=== PATIENT | male | born 1975 | race African-American/Black ===

== ENCOUNTER 2018-07-08 22:01 | Emergency (ER) | payer OTHER ==
[2018-07-08] MEDS ORDERED: SIMETHICONE 80 MG TAB ONE (23:42)
[2018-07-09 00:09] LABS: Absolute Lymphocytes (CBC) 0.6 K/uL (0.7-4.9); Absolute Monocytes 0.4 K/uL (0.1-1.3); Basophils % 0.5 % (0-1.3); Eosinophils % 0.3 % (0-4.4); Hematocrit 41.2 % (39.6-49.0); Lymphocytes % 7.8 % (15.3-44.8); MPV 7.6 fL (7.6-11.3); RBC Red Blood Cell Count 5.33 M/uL (4.33-5.43)
[2018-07-09 00:21] LABS: Albumin 3.8 g/dL (3.4-5.0); Bilirubin Direct 0.2 mg/dL (0-0.2); Bilirubin Total 0.8 mg/dL (0.2-1.0); Potassium 4.3 mmol/L (3.5-5.1); Protein, Total 7.5 g/dL (6.4-8.2)
[2018-07-09 00:47] LABS: Blood Morphology Comment NOTED (NOT SEEN); Burr Cells 2+; Platelet Estimate ADEQ; Polychromasia 1+
--- NOTE | 2018-07-09 01:13 | ER ---
Nurse's Notes [facility] Name: Donovan Ruiz Age: 42 yrs Sex: Male : 1975 Arrival Date: 07/08/2018 Time: 22:02 Bed 14 Private MD: Daryn Red Diagnosis: Abdominal and pelvic pain;Nephrolithiasis Presentation: 07/08 22:28 Presenting complaint: Patient states: i was diagnose today with gallstone and rr5 constipation. Prescribed with tylenol #3. now I'm having severe abdominal pain, pain score of 10/10. Transition of care: patient was not received from another setting of care. Onset of symptoms was July 08, 2018. Risk Assessment: Do you want to hurt yourself or someone else? Patient reports no desire to harm self or others. Initial Sepsis Screen: Does the patient meet any 2 criteria? No. Patient's initial sepsis screen is negative. Does the patient have a suspected source of infection? No. Patient's initial sepsis screen is negative. Care prior to arrival: Medication(s) given: T3. 22:28 Method Of Arrival: Ambulatory rr5 22:28 Acuity: DASH 3 rr5 Historical: - Allergies: 22:34 Iodine; rr5 - Home Meds: 22:34 Lisinopril Oral [Active]; Metformin Oral [Active]; Levemir subcutaneous subcutaneous rr5 [Active]; carvedilol oral oral [Active]; - PMHx: 22:34 Diabetes - IDDM; Hypertension; Sleep Apnea; rr5 - PSHx: 22:34 None; rr5 - Immunization history:: Adult Immunizations up to date. - Social history:: Smoking status: Patient/guardian denies using tobacco, Patient/guardian denies using alcohol, street drugs. - Ebola Screening: : Patient negative for fever greater than or equal to 101.5 degrees Fahrenheit, and additional compatible Ebola Virus Disease symptoms Patient denies exposure to infectious person Patient denies travel to an Ebola-affected area in the 21 days before illness onset. Screenin:35 Abuse screen: Denies threats or abuse. Denies injuries from another. Nutritional rr5 screening: No deficits noted. Tuberculosis screening: No symptoms or risk factors identified. 07/09 00:00 Fall Risk IV access (20 points). Total Nick Fall Scale indicates No Risk (0-24 pts). rr5 Assessment: 07/08 22:20 General: Appears in no apparent distress. uncomfortable, Behavior is calm, cooperative, rr5 appropriate for age. Pain: Complains of pain in right flank Pain does not radiate. Pain currently is 10 out of 10 on a pain scale. Quality of pain is described as aching, Pain began gradually, Is intermittent. 22:20 Neuro: Level of Consciousness is awake, alert, obeys commands, Oriented to person, rr5 place, time, situation, Appropriate for age. Cardiovascular: Capillary refill < 3 seconds Patient's skin is warm and dry. Respiratory: Airway is patent Respiratory effort is even, unlabored, Respiratory pattern is regular, symmetrical. GI: Abdomen is round obese. : Reports pain in right flank(s). EENT: No signs and/or symptoms were reported regarding the EENT system. Derm: Skin is intact, Skin temperature is warm. Musculoskeletal: Capillary refill < 3 seconds, Range of motion: intact in all extremities. 23:30 Reassessment: Patient appears in no apparent distress at this time. No changes from rr5 previously documented assessment. Patient is alert, oriented x 3, equal unlabored respirations, skin warm/dry/pink. 07/09 00:05 Reassessment: Patient appears in no apparent distress at this time. Patient is alert, rr5 oriented x 3, equal unlabored respirations, skin warm/dry/pink. awaiting for result. no complaints made. 00:55 Reassessment: Patient appears in no apparent distress at this time. Patient is alert, rr5 oriented x 3, equal unlabored respirations, skin warm/dry/pink. review done by ED provider with order made and carried out. 01:55 Reassessment: Patient appears in no apparent distress at this time. Patient is alert, rr5 oriented x 3, equal unlabored respirations, skin warm/dry/pink. discharge instruction given and explained without complaints made. Patient denies pain at this time. Patient states feeling better. Patient states symptoms have improved. Vital Signs: 07/08 22:30 BP 137 / 90; Pulse 77; Resp 17; Temp 98.4; Pulse Ox 99% ; Weight 135.62 kg; Height 5 rr5 ft. 9 in. (175.26 cm); Pain 10/10; 23:30 BP 141 / 70; Pulse 85; Resp 19; Pulse Ox 99% on R/A; Pain 10/10; rr5 07/09 00:00 BP 131 / 65; Pulse 79; Resp 17; Pulse Ox 99% ; Pain 7/10; rr5 01:00 BP 126 / 63; Pulse 74; Resp 18; Pulse Ox 98% on R/A; rr5 01:56 BP 124 / 73; Pulse 75; Resp 17; Pulse Ox 99% ; Pain 0/10; rr5 07/08 22:30 Body Mass Index 44.15 (135.62 kg, 175.26 cm) rr5 ED Course: 07/08 22:02 Patient arrived in ED. do 22:02 Daryn Red MD is Private Physician. do 22:12 Segundo Mae [facility]. jr8 22:12 Martín Alfred MD is Attending Physician. jr8 22:28 Bam Russell, MARILY is Primary Nurse. rr5 22:31 Triage completed. rr5 22:35 Arm band placed on. rr5 22:35 Patient has correct armband on for positive identification. Placed in gown. Bed in low rr5 position. Call light in reach. Side rails up X2. 23:[address] via wheelchair. nj 23:32 CT completed. Patient tolerated procedure well. nj 23:40 Inserted saline lock: 20 gauge in right forearm, using aseptic technique. Blood rr5 collected. 23:45 Stone Protocol In Process Unspecified. EDMS 07/09 01:11 Garret Solorio MD is Referral Physician. jr8 02:02 No provider procedures requiring assistance completed. IV discontinued, intact, rr5 bleeding controlled, No redness/swelling at site. Pressure dressing applied. Administered Medications: 07/08 23:40 Drug: Simethicone 160 mg Route: PO; rr5 07/09 02:02 Follow up: Response: No adverse reaction rr5 01:08 Drug: Zofran 4 mg Route: IVP; Site: right forearm; rr5 02:02 Follow up: Response: No adverse reaction rr5 01:10 Drug: morphine 4 mg Route: IVP; Site: right forearm; rr5 02:02 Follow up: Response: No adverse reaction rr5 01:13 Drug: Rocephin 1 grams Route: IV; Rate: calculated rate; Site: right forearm; rr5 02:01 Follow up: Response: No adverse reaction; IV Status: Completed infusion; IV Intake: [id number] Intake: 02:01 IV: 10ml; Total: 10ml. rr5 Outcome: 01:13 Discharge ordered by . grupo 02:00 Discharged to home ambulatory, with family. rr5 02:00 Condition: stable 02:00 Discharge instructions given to patient, family, Instructed on discharge instructions, follow up and referral plans. medication usage, Demonstrated understanding of instructions, follow-up care, medications, Prescriptions given X 2. 02:04 Patient left the ED. rr5 Signatures: Dispatcher [employer] EDMS Segundo Mae PA PA jr8 Mari Cordero, Bam Quiñones, RN RN rr5
--- NOTE | 2018-07-09 01:13 | EDPHYS ---
Physician Documentation [facility] Name: Donovan Ruiz Age: 42 yrs Sex: Male : 1975 Arrival Date: 07/08/2018 Time: 22:02 Bed 14 Private MD: Daryn Red ED Physician Martín Alfred HPI: 07/08 22:31 This 42 yrs old Black Male presents to ER via Unassigned with complaints of Side of jr8 Abdomen Pain. 22:31 Onset: The symptoms/episode began/occurred last night. Associated signs and symptoms: jr8 Pertinent positives: abdominal pain, Pertinent negatives: chest pain, diarrhea, fever, shortness of breath, vomiting. 22:48 Modifying factors: The patient symptoms are alleviated by nothing, the patient symptoms jr8 are aggravated by nothing. The patient has not experienced similar symptoms in the past. The patient has been recently seen by a physician: earlier today, seen at [facility]. Patient reports right flank and right abd pain that radiates to his groin that started last night. States that he was seen at [facility] today and discharged home with gallstones and constipation. Patient reports that the abdominal pain returned so he came back to this ER to be evaluated.. Historical: - Allergies: 22:34 Iodine; rr5 - Home Meds: 22:34 Lisinopril Oral [Active]; Metformin Oral [Active]; Levemir subcutaneous subcutaneous rr5 [Active]; carvedilol oral oral [Active]; - PMHx: 22:34 Diabetes - IDDM; Hypertension; Sleep Apnea; rr5 - PSHx: 22:34 None; rr5 - Immunization history:: Adult Immunizations up to date. - Social history:: Smoking status: Patient/guardian denies using tobacco, Patient/guardian denies using alcohol, street drugs. - Ebola Screening: : Patient negative for fever greater than or equal to 101.5 degrees Fahrenheit, and additional compatible Ebola Virus Disease symptoms Patient denies exposure to infectious person Patient denies travel to an Ebola-affected area in the 21 days before illness onset. ROS: 22:48 Constitutional: Negative for fever, chills, and weight loss, Cardiovascular: Negative jr8 for chest pain, palpitations, and edema, Respiratory: Negative for shortness of breath, cough, wheezing, and pleuritic chest pain, : Negative for injury, bleeding, discharge, and swelling, MS/Extremity: Negative for injury and deformity, Skin: Negative for injury, rash, and discoloration. 22:48 Abdomen/GI: Positive for abdominal pain, constipation, Negative for nausea and vomiting, diarrhea. 22:48 : Positive for burning with urination. Exam: 22:51 Constitutional: This is a well developed, well nourished patient who is awake, alert, jr8 and in no acute distress. Eyes: Pupils equal round and reactive to light, extra-ocular motions intact. Lids and lashes normal. Conjunctiva and sclera are non-icteric and not injected. Cornea within normal limits. Periorbital areas with no swelling, redness, or edema. ENT: Nares patent. No nasal discharge, no septal abnormalities noted. Tympanic membranes are normal and external auditory canals are clear. Oropharynx with no redness, swelling, or masses, exudates, or evidence of obstruction, uvula midline. Mucous membranes moist. Cardiovascular: Regular rate and rhythm with a normal S1 and S2. No gallops, murmurs, or rubs. Normal PMI, no JVD. No pulse deficits. Respiratory: Lungs have equal breath sounds bilaterally, clear to auscultation and percussion. No rales, rhonchi or wheezes noted. No increased work of breathing, no retractions or nasal flaring. Skin: Warm, dry with normal turgor. Normal color with no rashes, no lesions, and no evidence of cellulitis. MS/ Extremity: Pulses equal, no cyanosis. Neurovascular intact. Full, normal range of motion. Neuro: Awake and alert, GCS 15, oriented to person, place, time, and situation. Cranial nerves II-XII grossly intact. Motor strength 5/5 in all extremities. Sensory grossly intact. Cerebellar exam normal. Normal gait. 22:51 Abdomen/GI: Inspection: distension, that is moderate, in the abdomen diffusely, obese Bowel sounds: normal, in all quadrants, Palpation: mild abdominal tenderness, in the right upper quadrant and right lower quadrant, Liver: is enlarged. Vital Signs: 22:30 BP 137 / 90; Pulse 77; Resp 17; Temp 98.4; Pulse Ox 99% ; Weight 135.62 kg; Height 5 rr5 ft. 9 in. (175.26 cm); Pain 10/10; 23:30 BP 141 / 70; Pulse 85; Resp 19; Pulse Ox 99% on R/A; Pain 10/10; rr5 07/09 00:00 BP 131 / 65; Pulse 79; Resp 17; Pulse Ox 99% ; Pain 7/10; rr5 01:00 BP 126 / 63; Pulse 74; Resp 18; Pulse Ox 98% on R/A; rr5 01:56 BP 124 / 73; Pulse 75; Resp 17; Pulse Ox 99% ; Pain 0/10; rr5 07/08 22:30 Body Mass Index 44.15 (135.62 kg, 175.26 cm) rr5 MDM: 07/08 22:12 Patient medically screened. jr8 22:52 Data reviewed: vital signs, nurses notes, reviewed [place] discharge papers; CT abdomen jr8 w/out contrast and blood work+UA completed. Discharge diagnosis was constipation. . 07/09 00:53 Differential diagnosis: neprolithiasis. Data reviewed: lab test result(s), CBC, jr8 electrolytes, urinalysis, radiologic studies, CT scan. Counseling: I had a detailed discussion with the patient and/or guardian regarding: the historical points, exam findings, and any diagnostic results supporting the discharge/admit diagnosis, lab results, radiology results, the need for outpatient follow up, for definitive care, a urologist, to return to the emergency department if symptoms worsen or persist or if there are any questions or concerns that arise at home. 01:10 Medication response: morphine markedly relieved the patient's pain. Symptoms have jr8 improved. 07/08 22:50 Order name: Urine Dipstick--Ancillary (enter results) 07/08 23:20 Order name: Stone Protocol [facility] 07/09 00:00 Order name: Basic Metabolic Panel; Complete Time: 00:34 EDLA 07/09 00:00 Order name: Liver (Hepatic) Function; Complete Time: 00:34 EDLA 07/09 00:01 Order name: Lipase; Complete Time: 00:34 [facility] 07/09 00:01 Order name: Creatinine (Radiology Only); Complete Time: 00:34 EDLA 07/09 00:01 Order name: CBC with Automated Diff; Complete Time: 00:57 EDLA 07/09 00:20 Order name: Manual Differential; Complete Time: 00:57 [facility] 07/08 23:08 Order name: IV Saline Lock; Complete Time: 23:58 jr8 07/08 23:08 Order name: Labs collected and sent; Complete Time: 23:58 jr8 Administered Medications: 07/08 23:40 Drug: Simethicone 160 mg Route: PO; rr5 07/09 02:02 Follow up: Response: No adverse reaction rr5 01:08 Drug: Zofran 4 mg Route: IVP; Site: right forearm; rr5 02:02 Follow up: Response: No adverse reaction rr5 01:10 Drug: morphine 4 mg Route: IVP; Site: right forearm; rr5 02:02 Follow up: Response: No adverse reaction rr5 01:13 Drug: Rocephin 1 grams Route: IV; Rate: calculated rate; Site: right forearm; rr5 02:01 Follow up: Response: No adverse reaction; IV Status: Completed infusion; IV Intake: [id number] Disposition: 03:07 Co-signature as Attending Physician, Martín Alfred MD. rn Disposition: 07/09/18 01:13 Discharged to Home. Impression: Abdominal and pelvic pain, Nephrolithiasis. - Condition is Stable. - Discharge Instructions: Abdominal Pain, Adult, Kidney Stones, [id number]. - Prescriptions for Keflex 500 mg Oral Capsule - take 1 capsule by ORAL route every 8 hours for 7 days; 21 capsule. Flomax 0.4 mg Oral Capsule, Sust. Release 24 hr - take 1 capsule by ORAL route once daily 1/2 hour following the same meal each day; 14 capsule. - Medication Reconciliation Form, Thank You Letter, Antibiotic Education, Prescription Opioid Use form. - Follow up: Garret Solorio MD; When: 2 - 3 days; Reason: Worsening of condition, Recheck today's complaints. - Problem is new. - Symptoms have improved. Signatures: Dispatcher [employer] [facility] Martín Alfred MD MD rn Roszak, Josh, PA PA jr8 Bam Russell RN RN rr5 Corrections: (The following items were deleted from the chart) 07/08 22:50 22:31 Associated signs and symptoms: Pertinent positives: abdominal pain, Pertinent jr8 negatives: jr8 07/09 00:59 00:54 Stone Protocol+CT.RAD.BRZ ordered. [facility] EDMS 02:04 01:13 07/09/2018 01:13 Discharged to Home. Impression: Abdominal and pelvic pain; rr5 Nephrolithiasis. Condition is Stable. Forms are Medication Reconciliation Form, Thank You Letter, Antibiotic Education, Prescription Opioid Use. Follow up: Garret Solorio; When: 2 - 3 days; Reason: Worsening of condition, Recheck today's complaints. Problem is new. Symptoms have improved. jr8
[2018-07-09] MEDS ORDERED: MORPHINE 4 MG/ML SYR ONE (01:23)
[2018-07-09] MEDS ORDERED: CEFTRIAXONE/SWI 1gm 1 GM/10 ML SYR ONE (01:23)
[2018-07-09] MEDS ORDERED: ONDANSETRON 4 MG/2 ML VIAL ONE (01:23)
[2018-07-09 05:20] LABS: Urine Blood 3+ (NEG); Urine Glucose NEGATIVE (NEG); Urine Protein TRACE (NEG); Urine Specific Gravity >1.030 (1.005-1.030)
--- NOTE | 2018-07-09 11:07 | RAD REPORT ---
EXAM DESCRIPTION: CT Abdomen and Pelvis Without Intravenous Contrast CLINICAL HISTORY: The patient is 42 years old and is Male; abd pain TECHNIQUE: Axial computed tomography images of the abdomen and pelvis without intravenous contrast. Sagittal and coronal reformatted images were created and reviewed. This CT exam was performed usi ng one or more of the following dose reduction techniques: automated exposure control, adjustment o f the mA and/or kV according to patient size, and/or use of iterative reconstruction technique. COMPARISON: No relevant prior studies available. FINDINGS: LUNG BASES: Unremarkable. No mass. No consolidation. ABDOMEN: LIVER: There is a diffuse decrease in hepatic parenchymal density, consistent with fatty infiltr ation. The liver is enlarged. GALLBLADDER AND BILE DUCTS: No calcified stones. No ductal dilation. PANCREAS: Mild fatty infiltration of the pancreas is noted. No ductal dilation. SPLEEN: Splenule is present within the left upper quadrant. The spleen is unremarkable. ADRENALS: Unremarkable. No mass. KIDNEYS AND URETERS: Mild right hydroureteronephrosis with associated perinephric and periureter al stranding is present secondary to a 4 mm calculus just beyond the right UVJ within the base of the bladder. The left kidney is unremarkable. STOMACH AND BOWEL: The stomach is moderately distended. The small bowel is normal in caliber. St ool is present throughout the colon. There is no mucosal thickening or evidence of bowel obstruction. PELVIS: APPENDIX: The appendix is normal in caliber without surrounding inflammation. BLADDER: The bladder is not well distended. REPRODUCTIVE: Unremarkable as visualized. ABDOMEN and PELVIS: INTRAPERITONEAL SPACE: Unremarkable. No free air. No significant fluid collection. BONES/JOINTS: No acute fracture. SOFT TISSUES: Focal skin thickening along the left anterior abdominal wall is present. VASCULATURE: Unremarkable. No abdominal aortic aneurysm. LYMPH NODES: Unremarkable. No enlarged lymph nodes. IMPRESSION: 1. Mild right hydroureteronephrosis with associated perinephric and periureteral stran ding is present secondary to a 4 mm calculus just beyond the right UVJ within the base of the bladder . 2. Focal skin thickening along the left lateral anterior abdominal wall which may be secondary to a n area of cellulitis. No underlying abscess is noted. Electronically signed by: Eliza Rhodes MD 07/08/2018 11:51 PM CDT Due to temporary technical issues with the PACS/Fluency reporting system, reports are being signed by the in house radiologist as a courtesy to ensure prompt reporting. The interpreting radiologist is f ully responsible for the content of the report.
== END 2018-07-09 02:04 | disposition home or self-care (01) ==
LOC: ER 22:01
DX: N20.0 Calculus of kidney (principal); R10.9 Unspecified abdominal pain; E11.9 Type 2 diabetes mellitus without complications; I10 Essential (primary) hypertension; Z79.4 Long term (current) use of insulin; Z88.8 Allergy status to other drugs, medicaments and biological substances
CPT/HCPCS: 36415; 74176; 76377; 80048; 80076; 81003; 83690; 85025; 96365; 96375; 99284; J0696; J2405

== ENCOUNTER 2018-07-18 06:25 | Emergency (ER) | payer OTHER ==
[2018-07-18] MEDS ORDERED: ALBUTEROL 2.5 MG/3 ML NEB SOL ONE (07:04)
[2018-07-18 07:09] LABS: Absolute Lymphocytes (CBC) 0.8 K/uL (0.7-4.9); Absolute Monocytes 0.2 K/uL (0.1-1.3); Absolute Neutrophil 2.8 K/uL (1.8-8.0); Basophils % 0.8 % (0-1.3); Hematocrit 38.2 % (39.6-49.0); Lymphocytes % 21.2 % (15.3-44.8); MPV 7.5 fL (7.6-11.3); RBC Red Blood Cell Count 4.95 M/uL (4.33-5.43)
[2018-07-18 07:27] LABS: Potassium 4.2 mmol/L (3.5-5.1); Troponin (Emerg Dept Use Only) 0.03 ng/mL (0.0-0.045)
--- NOTE | 2018-07-18 07:59 | EKG ---
Test Date: 2018-07-18 Test Time: 07:02:41 Residence Counselor: [id number] MEASUREMENT RESULTS: Intervals: Rate: 73 SD: 142 QRSD: 86 QT: 378 QTc: 416 [place]: P: 45 SD: 142 QRS: 110 T: -48 INTERPRETIVE STATEMENTS: Normal sinus rhythm Septal infarct, age undetermined Lateral infarct, age undetermined T wave abnormality, consider inferior ischemia Abnormal ECG No previous ECG available for comparison Electronically Signed On 07-18-18 07:58:41 CDT by Cooper Olivera
[2018-07-18] MEDS ORDERED: FUROSEMIDE 20 MG/ 2ML VIAL ONE (08:11)
[2018-07-18] MEDS ORDERED: INSULIN -REGULAR HUMAN 50 UNIT/0.5 ML ML ONE (08:12)
--- NOTE | 2018-07-18 08:26 | RAD REPORT ---
EXAM DESCRIPTION: Heather Cooper And Nesha (2 Views)07/18/2018 7:39 am CLINICAL HISTORY: Cough COMPARISON: None FINDINGS: Peribronchial thickening is present centrally. A lung consolidation is not seen. The heart is normal size IMPRESSION: Peribronchial thickening may indicate a bronchitis
--- NOTE | 2018-07-18 09:05 | EDPHYS ---
Physician Documentation [facility] Name: Donovan Ruiz Age: 42 yrs Sex: Male : 1975 Arrival Date: 07/18/2018 Time: 06:29 Bed 5 Private MD: Darny Red ED Physician Philippe Dixon HPI: 07/18 06:50 This 42 yrs old Black Male presents to ER via Ambulatory with complaints of Breathing rn Difficulty, Chest Congestion. 06:50 The patient has shortness of breath at rest. Onset: The symptoms/episode began/occurred rn 2 day(s) ago. Duration: The symptoms are intermittent. The patient's shortness of breath is aggravated by coughing, exertion, is alleviated by nothing. Severity of symptoms: At their worst the symptoms were mild in the emergency department the symptoms are unchanged. The patient has not experienced similar symptoms in the past. The patient has not recently seen a physician. Reports sob, cough, intermittent, began a few days ago. Has been told in past that has "weak heart muscles", and uses an inhaler for unknown reason. . Historical: - Allergies: 06:43 Iodine; bb - Home Meds: 06:43 ProAir HFA inhalation inhalation [Active]; metformin 1,000 mg oral tab 1 tab 2 times bb per day [Active]; glimepiride 4 mg Oral tab 1 tab once daily [Active]; 08:31 benzonatate 100 mg oral cap 1 cap twice a day [Active]; lisinopril 10 mg oral tab once sv daily [Active]; Levemir 60 units BID subcutaneous [Active]; - PMHx: 06:43 Diabetes - IDDM; Hypertension; Sleep Apnea; bb - Immunization history:: Adult Immunizations up to date, Flu vaccine is not up to date. - Social history:: Smoking status: Patient/guardian denies using tobacco. - Ebola Screening: : No symptoms or risks identified at this time. - Family history:: not pertinent. - Hospitalizations: : No recent hospitalization is reported. ROS: 06:50 Constitutional: Negative for fever, chills, and weight loss, Eyes: Negative for injury, rn pain, redness, and discharge, Neck: Negative for injury, pain, and swelling, Cardiovascular: Negative for chest pain, palpitations, and edema, Respiratory: Negative for wheezing, and pleuritic chest pain, Abdomen/GI: Negative for abdominal pain, nausea, vomiting, diarrhea, and constipation, MS/Extremity: Negative for injury and deformity, Skin: Negative for injury, rash, and discoloration, Neuro: Negative for headache, weakness, numbness, tingling, and seizure. Exam: 06:50 Constitutional: This is a well developed, well nourished patient who is awake, alert, rn and in no acute distress. Head/Face: Normocephalic, atraumatic. Eyes: Pupils equal round and reactive to light, extra-ocular motions intact. Lids and lashes normal. Conjunctiva and sclera are non-icteric and not injected. Cornea within normal limits. Periorbital areas with no swelling, redness, or edema. ENT: no oral swelling, no stridor Cardiovascular: Regular rate and rhythm. No pulse deficits. Respiratory: Lungs have equal breath sounds bilaterally, clear to auscultation. No increased work of breathing, no retractions or nasal flaring. Abdomen/GI: soft, non-tender MS/ Extremity: Pulses equal, no cyanosis. Neurovascular intact. Full, normal range of motion. Equal circumference. NOn-pitting edema bilateral lower ext Neuro: Awake and alert, GCS 15, oriented to person, place, time, and situation. Cranial nerves II-XII grossly intact. Motor strength 5/5 in all extremities. Sensory grossly intact. 09:03 Musculoskeletal/extremity: Extremities: grossly normal except: swelling, 2 plus pitting pritesh edema. Vital Signs: 06:43 BP 138 / 101; Pulse 90; Resp 20 S; Temp 98.7(O); Pulse Ox 96% on R/A; Weight 139.25 kg bb (R); Height 5 ft. 9 in. (175.26 cm) (R); Pain 0/10; 07:24 BP 146 / 118; Pulse 70; Resp 20; Pulse Ox 97% on R/A; sv 08:31 BP 145 / 86; Pulse 69; Resp 20; Pulse Ox 96% on R/A; sv 09:24 BP 142 / 80; Pulse 70; Resp 18; Pulse Ox 99% on R/A; sv 06:43 Body Mass Index 45.34 (139.25 kg, 175.26 cm) MDM: 06:33 Patient medically screened. rn 07:26 Patient medically screened. [facility] 07:48 Data reviewed: vital signs, nurses notes, lab test result(s), EKG, radiologic studies, [facility] plain films. 07/18 06:50 Order name: BMP; Complete Time: 07:46 07/18 06:50 Order name: CBC with Diff; Complete Time: 07:21 07/18 06:50 Order name: NT PRO-BNP; Complete Time: 07:46 07/18 06:50 Order name: Troponin (emerg Dept Use Only); Complete Time: 07:46 07/18 07:48 Order name: Influenza Screen (a \\T\\ B); Complete Time: 08:42 [facility] 07/18 08:00 Order name: Glucose, Ancillary Testing; Complete Time: 08:42 EDNE 07/18 06:50 Order name: XRAY Chest Pa And Lat (2 Views); Complete Time: 08:42 07/18 07:48 Order name: Echo w/ Doppler [facility] 07/18 09:12 Order name: Glucose, Ancillary Testing EDNE 07/18 06:50 Order name: EKG; Complete Time: 06:50 07/18 06:50 Order name: Cardiac monitoring; Complete Time: 08:58 07/18 06:50 Order name: EKG - Nurse/Tech; Complete Time: 07:07 rn 07/18 06:50 Order name: IV Saline Lock; Complete Time: 06:50 07/18 06:50 Order name: Labs collected and sent; Complete Time: 06:58 07/18 06:50 Order name: O2 Per Protocol; Complete Time: 06:50 rn 07/18 06:50 Order name: O2 Sat Monitoring; Complete Time: 06:51 rn Administered Medications: 06:53 Drug: Albuterol 2.5 mg Route: Inhalation; ea 08:09 Drug: Lasix 20 mg Route: IVP; Site: right antecubital; sv 08:58 Follow up: Response: No adverse reaction sv 08:10 Drug: Insulin Regular Human 10 units {Co-Signature: ss (Kim Olson RN).} Route: IVP; sv Site: right antecubital; 09:13 Follow up: Response: No adverse reaction; Blood sugar is lowered sv 09:12 Drug: Aspirin Chewable Tablet 324 mg Route: PO; sv 09:25 Follow up: Response: No adverse reaction sv Point of Care Testing: Blood Glucose: 09:13 Blood Glucose: 184 mg/dL; sv Ranges: Critical Glucose Levels:Adult <50 mg/dl or >400 mg/dl <40 mg/dl or >180 mg/dl Disposition: 07/18/18 09:04 Discharged to Home. Impression: Type 1 diabetes mellitus, Dyspnea, unspecified, Cardiomyopathy - per Dr. Willis, Unspecified combined systolic (congestive) and diastolic (congestive) heart failure, Obesity, unspecified, Essential (primary) hypertension, Bronchitis, not specified as acute or chronic. - Condition is Stable. - Discharge Instructions: Heart Failure, Type 1 Diabetes Mellitus, Diagnosis, Adult, Hypertension, Obesity, Adult, Shortness of Breath, Ipcy-wl-Sble, Acute Bronchitis, Yzoh-ws-Luqa, Hypertension, Axzs-ed-Fhzo, Aspirin and Your Heart, Heart Failure, Ewki-ey-Iubw, Managing Your Hypertension, Type 1 Diabetes Mellitus, Self Care, Adult, Type 1 Diabetes Mellitus, Diagnosis, Adult, Macf-tl-Nsiv. - Prescriptions for Lasix 40 mg Oral Tablet - take 1 tablet by ORAL route once daily for 30 days; 30 tablet. Potassium Chloride 20 meq Oral Packet - take 1 packet by ORAL route once daily 1 packet in 6 (six) ounces of water or juice; Take after meal; 30 packet. Albuterol Sulfate 90 mcg/actuation - inhale 1-2 puff by INHALATION route every 4-6 hours; 1 Inhaler. Lisinopril 10 mg Oral Tablet - take 1 tablet by ORAL route once daily; 20 tablet. - Medication Reconciliation Form, Thank You Letter, Antibiotic Education, Prescription Opioid Use form. - Follow up: Daryn Red; When: 2 - 3 days; Reason: Recheck today's complaints, Continuance of care, Re-evaluation by your physician. Follow up: Jovon Willis; When: 2 - 3 days; Reason: Recheck today's complaints, Continuance of care, Re-evaluation by your physician. - Problem is new. - Symptoms have improved. Signatures: Dispatcher [employer] Taylor Vu RN RN sv Anderson, Corey, MD MD cha Ballard, Brenda, RN RN bb Nieto, Roman, MD MD rn Antunez, Elena, RN RN ea Shelby Smirch RN ss Corrections: (The following items were deleted from the chart) 08: 06:43 Home Meds: benzonatate 100 mg oral cap 1 cap twice a day; bb sv 08: 06:43 Home Meds: lisinopril 40 mg oral tab 1 tab once daily; bb sv 08: 06:43 Home Meds: Levemir subcutaneous; bb sv 09:00 08:54 TROPONIN I+C.LAB.BRZ ordered. EDNE EDMS 09:26 09:04 07/18/2018 09:04 Discharged to Home. Impression: Type 1 diabetes mellitus; sv Dyspnea, unspecified; Cardiomyopathy - per Dr. Willis; Unspecified combined systolic (congestive) and diastolic (congestive) heart failure; Obesity, unspecified; Essential (primary) hypertension; Bronchitis, not specified as acute or chronic. Condition is Stable. Discharge Instructions: Heart Failure, Type 1 Diabetes Mellitus, Diagnosis, Adult, Hypertension, Obesity, Adult, Shortness of Breath, Wbta-qn-[id number], Hypertension, Amnv-ji-Fjeu, Aspirin and Your Heart, Heart Failure, Rgou-xa-Jfup, Managing Your Hypertension, Type 1 Diabetes Mellitus, Self Care, Adult, Type 1 Diabetes Mellitus, Diagnosis, Adult, Jwzs-sd-Rnti. Prescriptions for Lasix 40 mg Oral Tablet - take 1 tablet by ORAL route once daily for 30 days; 30 tablet, Potassium Chloride 20 meq Oral Packet - take 1 packet by ORAL route once daily 1 packet in 6 (six) ounces of water or juice; Take after meal; 30 packet. and Forms are Medication Reconciliation Form, Thank You Letter, Antibiotic Education, Prescription Opioid Use. Follow up: Daryn Red; When: 2 - 3 days; Reason: Recheck today's complaints, Continuance of care, Re-evaluation by your physician. Follow up: Jovon Willis; When: 2 - 3 days; Reason: Recheck today's complaints, Continuance of care, Re-evaluation by your physician. Problem is new. Symptoms have improved. pritesh
--- NOTE | 2018-07-18 09:05 | ER ---
Nurse's Notes [facility] Name: Donovan Ruiz Age: 42 yrs Sex: Male : 1975 Arrival Date: 07/18/2018 Time: 06:29 Bed 5 Private MD: Daryn Red Diagnosis: Type 1 diabetes mellitus;Dyspnea, unspecified;Cardiomyopathy-per Dr. Willis;Unspecified combined systolic (congestive) and diastolic (congestive) heart failure;Obesity, unspecified;Essential (primary) hypertension;Bronchitis, not specified as acute or chronic Presentation: 07/18 06:39 Presenting complaint: Patient states: he has been having difficulty breathing for bb several days "I just can't catch my wind" he also has a cough productive of mucous possibly with blood in it. Transition of care: patient was not received from another setting of care. Onset of symptoms was July 14, 2018. Risk Assessment: Do you want to hurt yourself or someone else? Patient reports no desire to harm self or others. Initial Sepsis Screen: Does the patient meet any 2 criteria? No. Patient's initial sepsis screen is negative. Does the patient have a suspected source of infection? No. Patient's initial sepsis screen is negative. Care prior to arrival: None. 06:39 Method Of Arrival: Ambulatory bb 06:39 Acuity: DASH 3 bb Historical: - Allergies: 06:43 Iodine; bb - Home Meds: 06:43 ProAir HFA inhalation inhalation [Active]; metformin 1,000 mg oral tab 1 tab 2 times bb per day [Active]; glimepiride 4 mg Oral tab 1 tab once daily [Active]; 08:31 benzonatate 100 mg oral cap 1 cap twice a day [Active]; lisinopril 10 mg oral tab once sv daily [Active]; Levemir 60 units BID subcutaneous [Active]; - PMHx: 06:43 Diabetes - IDDM; Hypertension; Sleep Apnea; bb - Immunization history:: Adult Immunizations up to date, Flu vaccine is not up to date. - Social history:: Smoking status: Patient/guardian denies using tobacco. - Ebola Screening: : No symptoms or risks identified at this time. - Family history:: not pertinent. - Hospitalizations: : No recent hospitalization is reported. Screenin:49 Abuse screen: Denies threats or abuse. Nutritional screening: No deficits noted. ea Tuberculosis screening: No symptoms or risk factors identified. Fall Risk IV access (20 points). Assessment: 06:49 General: Appears uncomfortable, Behavior is appropriate for age. Pain: Denies pain. ea Neuro: Level of Consciousness is awake, alert, obeys commands, Oriented to person, place, time, situation. Cardiovascular: Patient's skin is warm and dry. Respiratory: Airway is patent Respiratory effort is even, unlabored, Respiratory pattern is regular, symmetrical, Breath sounds with wheezes bilaterally. GI: Abdomen is obese. Derm: Skin is pink, warm \\T\\ dry. Musculoskeletal: Circulation, motion, and sensation intact. 07:24 General: Appears in no apparent distress. comfortable, well developed, Behavior is sv calm, cooperative, appropriate for age. Pain: Denies pain. Neuro: Level of Consciousness is awake, alert, obeys commands, Oriented to person, place, time, situation, Speech is normal. Cardiovascular: Heart tones S1 S2 present Patient's skin is warm and dry. Edema is 2+ to left ankle, left foot, right ankle and right foot. Respiratory: Airway is patent Respiratory effort is even, unlabored, Respiratory pattern is regular, symmetrical, clear inspiratory and wheezing expiratory. Derm: Skin is pink, warm \\T\\ dry. 08:09 Reassessment: Patient appears in no apparent distress at this time. Patient and/or sv family updated on plan of care and expected duration. Pain level reassessed. Patient is alert, oriented x 3, equal unlabored respirations, skin warm/dry/pink. 08:09 Cardiovascular: Rhythm is sinus rhythm. sv 09:23 Reassessment: Patient appears in no apparent distress at this time. Patient and/or sv family updated on plan of care and expected duration. Pain level reassessed. Patient is alert, oriented x 3, equal unlabored respirations, skin warm/dry/pink. Vital Signs: 06:43 BP 138 / 101; Pulse 90; Resp 20 S; Temp 98.7(O); Pulse Ox 96% on R/A; Weight 139.25 kg bb (R); Height 5 ft. 9 in. (175.26 cm) (R); Pain 0/10; 07:24 BP 146 / 118; Pulse 70; Resp 20; Pulse Ox 97% on R/A; sv 08:31 BP 145 / 86; Pulse 69; Resp 20; Pulse Ox 96% on R/A; sv 09:24 BP 142 / 80; Pulse 70; Resp 18; Pulse Ox 99% on R/A; sv 06:43 Body Mass Index 45.34 (139.25 kg, 175.26 cm) bb ED Course: 06:29 Patient arrived in ED. es 06:29 Daryn Red MD is Private Physician. es 06:33 Martín Alfred MD is Attending Physician. rn 06:40 Triage completed. bb 06:43 Arm band placed on Patient placed in an exam room, on a stretcher, on pulse oximetry. bb Family accompanied patient. 06:49 Patient has correct armband on for positive identification. Placed in gown. Bed in low ea position. Call light in reach. 06:49 Inserted saline lock: 20 gauge in right antecubital area, using aseptic technique. ea Blood collected. 07:15 Attending Physician role handed off by Martín Alfred MD pritesh 07:15 Philippe Dixon MD is Attending Physician. pritesh 07:21 Taylor Remy RN is Primary Nurse. sv 07:35 X-ray completed. Patient tolerated procedure well. Patient moved to radiology via sw wheelchair. Patient moved back from radiology. 07:37 XRAY Chest Pa And Lat (2 Views) In Process Unspecified. EDMS 09:04 Daryn Red MD is Referral Physician. pritesh 09:04 Jovon Willis MD is Referral Physician. pritesh 09:13 No provider procedures requiring assistance completed. IV discontinued, intact, sv bleeding controlled, No redness/swelling at site. Pressure dressing applied. 09:25 Echo w/ Doppler Sent. sv Administered Medications: 06:53 Drug: Albuterol 2.5 mg Route: Inhalation; ea 08:09 Drug: Lasix 20 mg Route: IVP; Site: right antecubital; sv 08:58 Follow up: Response: No adverse reaction sv 08:10 Drug: Insulin Regular Human 10 units {Co-Signature: ss (Kim Olson RN).} Route: IVP; sv Site: right antecubital; 09:13 Follow up: Response: No adverse reaction; Blood sugar is lowered sv 09:12 Drug: Aspirin Chewable Tablet 324 mg Route: PO; sv 09:25 Follow up: Response: No adverse reaction sv Point of Care Testing: Blood Glucose: 09:13 Blood Glucose: 184 mg/dL; sv Ranges: Output: 09:00 Urine: 620ml (Voided); Total: 620ml. sv 09:14 Urine: 800ml (Voided); Total: 1420ml. sv Outcome: 09:04 Discharge ordered by . pritesh 09:23 Discharged to home ambulatory, with family. sv 09:23 Condition: stable 09:23 Discharge instructions given to patient, family, Instructed on discharge instructions, follow up and referral plans. medication usage, keeping a BP log and weight log to show Dr Willis Demonstrated understanding of instructions, follow-up care, medications, Prescriptions given X 4. 09:26 Patient left the ED. sv Signatures: Dispatcher [employer] Taylor Vu RN RN sv Philippe Dixon MD MD cha Salyer, Brook Taylor RN RN bb Nieto, Roman, MD MD rn Warren, Shannon sw Antunez, Elena, RN RN ea Shelby Smirch RN ss Corrections: (The following items were deleted from the chart) 06:40 06:38 Presenting complaint: bb bb 08:15 07:24 Cardiovascular: Heart tones S1 S2 present Patient's skin is warm and dry. sv sv 08: 06:43 Home Meds: benzonatate 100 mg oral cap 1 cap twice a day; bb sv 08: 06:43 Home Meds: lisinopril 40 mg oral tab 1 tab once daily; bb sv 08: 06:43 Home Meds: Levemir subcutaneous; bb sv
[2018-07-18] MEDS ORDERED: ASPIRIN 81 MG CHEWABLE TABLET ONE (09:09)
--- NOTE | 2018-07-18 13:34 | ECHO ---
HEIGHT: 5 ft 9 in WEIGHT: 307 lb 0 oz DATE OF STUDY: 07/18/[address]: Philippe Dixon MD 2-DIMENSIONAL: YES M.MODE: YES DOPPLER: YES COLOR FLOW: YES TDS: NO PORTABLE: YES DEFINITY: NO BUBBLE STUDY: NO DIAGNOSIS: CONGESTIVE HEART FAILURE CARDIAC HISTORY: CATHERIZATION: NO SURGERY: NO PROSTHETIC VALVE: NO PACEMAKER: NO MEASUREMENTS (cm) DIASTOLIC (NORMALS) SYSTOLIC (NORMALS) IVSd 0.9 (0.6-1.2) LA Diam 3.9 (1.9-4.0) LVEF 49% LVIDd 5.2 (3.5-5.7) LVIDs 3.9 (2.0-3.5) %FS 25% LVPWd 0.9 (0.6-1.2) Ao Diam 2.7 (2.0-3.7) 2 DIMENSIONAL ASSESSMENT: RIGHT ATRIUM: NORMAL LEFT ATRIUM: NORMAL RIGHT VENTRICLE: NORMAL LEFT VENTRICLE: NORMAL TRICUSPID VALVE: NORMAL MITRAL VALVE: NORMAL PULMONIC VALVE: NORMAL AORTIC VALVE: NORMAL PERICARDIAL EFFUSION: NONE AORTIC ROOT: NORMAL LEFT VENTRICULAR WALL MOTION: MILD GLOBAL HYPOKINESIS. DOPPLER/COLOR FLOW: TRACE OF MITRAL REGURGITATION. COMMENTS: MILDLY DEPRESSED LEFT VENTRICULAR EJECTION FRACTION. TRACE OF MITRAL REGURGITATION. TECHNOLOGIST: LEE KURTZ
== END 2018-07-18 09:26 | disposition home or self-care (01) ==
LOC: ER 06:25
DX: I50.40 Unspecified combined systolic (congestive) and diastolic (congestive) heart failure (principal); I11.0 Hypertensive heart disease with heart failure; J40 Bronchitis, not specified as acute or chronic; I42.9 Cardiomyopathy, unspecified; E10.8 Type 1 diabetes mellitus with unspecified complications; E66.9 Obesity, unspecified; Z91.09 Other allergy status, other than to drugs and biological substances
CPT/HCPCS: 36415; 71046; 80048; 82962; 83880; 84484; 85025; 87804; 93005; 93306; 96374; 96375; 99285; J1940

== ENCOUNTER 2018-12-27 09:26 | Emergency (ER) | payer OTHER ==
[2018-12-27 10:19] LABS: Basophils % 0.7 % (0-1.3); Hematocrit 38.3 % (39.6-49.0); Lymphocytes % 20.8 % (15.3-44.8); MPV 7.5 fL (7.6-11.3); RBC Red Blood Cell Count 5.03 M/uL (4.33-5.43)
--- NOTE | 2018-12-27 10:20 | RAD REPORT ---
EXAM DESCRIPTION: RAD - Chest Pa And Lat (2 Views) - 12/27/2018 10:12 am CLINICAL HISTORY: COUGHcough, chest congestion COMPARISON: June 2018 TECHNIQUE: PA and lateral views of the chest were obtained. FINDINGS: The lungs are clear. Lung markings are similar to comparison. Heart size is normal and ce ntral vasculature is within normal limits. No pleural effusion or pneumothorax seen. No acute bony finding noted. No aortic abnormality. IMPRESSION: No acute cardiopulmonary process. No significant change comparison.
[2018-12-27] MEDS ORDERED: NA CHLORIDE 0.9% 1,000 ML ONE (10:30)
[2018-12-27 10:37] LABS: Albumin 3.6 g/dL (3.4-5.0); Bilirubin Direct 0.1 mg/dL (0-0.2); Bilirubin Total 0.3 mg/dL (0.2-1.0); Magnesium 1.7 mg/dL (1.8-2.4); Troponin (Emerg Dept Use Only) 0.02 ng/mL (0.0-0.045)
[2018-12-27 10:42] LABS: Urine Blood NEGATIVE (NEG); Urine Glucose 3+ (NEG); Urine Protein NEGATIVE (NEG)
[2018-12-27 11:00] LABS: Protime INR 1.13
--- NOTE | 2018-12-27 11:46 | ER ---
Nurse's Notes [facility] Name: Donovan Ruiz Age: 43 yrs Sex: Male : 1975 Arrival Date: 12/27/2018 Time: 09:28 Bed 18 Private MD: Daryn Red Diagnosis: Cough;Acute upper respiratory infection, unspecified;Type 1 diabetes mellitus;Hypomagnesemia Presentation: 12/27 09:37 Presenting complaint: Patient states: Chest congestion x 2 days, states "It makes me jl7 feel like I can't breathe.". Transition of care: patient was not received from another setting of care. Onset of symptoms was December 25, 2018. Risk Assessment: Do you want to hurt yourself or someone else? Patient reports no desire to harm self or others. Initial Sepsis Screen: Does the patient meet any 2 criteria? No. Patient's initial sepsis screen is negative. Does the patient have a suspected source of infection? No. Patient's initial sepsis screen is negative. Care prior to arrival: None. 09:37 Method Of Arrival: Ambulatory 7 09:37 Acuity: DASH 3 jl7 Triage Assessment: 09:39 General: Appears in no apparent distress. uncomfortable, Behavior is calm, cooperative, jl7 appropriate for age. Pain: Denies pain. Neuro: Level of Consciousness is awake, alert, obeys commands, Oriented to person, place, time, situation. Cardiovascular: Heart tones S1 S2 present Patient's skin is warm and dry. Respiratory: Airway is patent Respiratory effort is even, unlabored, Respiratory pattern is regular, symmetrical, Breath sounds are clear bilaterally. GI: No signs and/or symptoms were reported involving the gastrointestinal system. Derm: Skin is dry, Skin is normal, Skin temperature is warm. Historical: - Allergies: 09:39 Iodine; jl7 - Home Meds: 10:16 lisinopril 10 mg Oral tab once daily [Active]; pravastatin 20 mg oral tab 1 tab once jl7 daily [Active]; metformin 1,000 mg Oral tab 1 tab 2 times per day [Active]; amiodarone 200 mg Oral tab 1 tab once daily [Active]; carvedilol 25 mg oral tab 1 tab 2 times per day [Active]; glimepiride 4 mg Oral tab 1 tab [Active]; Xarelto 20 mg oral tab 1 tab once daily [Active]; ProAir HFA inhalation [Active]; Levemir 60 units BID subcutaneous [Active]; - PMHx: 09:39 Diabetes - IDDM; Hypertension; Sleep Apnea; jl7 10:16 Atrial Fib; Hyperlipidemia; jl7 - PSHx: 09:39 None; jl7 - Immunization history:: Adult Immunizations not up to date. - Social history:: Smoking status: Patient/guardian denies using tobacco. - Ebola Screening: : No symptoms or risks identified at this time. Screenin:00 Abuse screen: Denies threats or abuse. Denies injuries from another. Nutritional jl7 screening: No deficits noted. Tuberculosis screening: No symptoms or risk factors identified. Fall Risk IV access (20 points). Total Nick Fall Scale indicates No Risk (0-24 pts). Assessment: 12:13 Reassessment: pt will be discharged once medication is done infusing. jl7 Vital Signs: 09:39 BP 139 / 74; Pulse 80; Resp 17; Temp 99.3; Pulse Ox 100% ; Weight 133.36 kg; Pain 0/10; dh3 11:00 BP 141 / 84; Pulse 67; Resp 16 S; Pulse Ox 100% on R/A; jl7 12:45 BP 123 / 67; Pulse 58; Resp 16 S; Pulse Ox 99% on R/A; jl7 ED Course: 09:28 Patient arrived in ED. rg4 09:28 Daryn Red MD is Private Physician. rg4 09:31 Layton Red, RN is Primary Nurse. jl7 09:38 Triage completed. jl7 09:39 Arm band placed on right wrist. jl7 09:45 Patient has correct armband on for positive identification. Bed in low position. Call [facility] light in reach. Side rails up X 1. marketing researcher on. Pulse ox on. NIBP on. 09:46 Philippe Dixon MD is Attending Physician. pritesh 10:01 Initial lab(s) drawn, by me, sent to lab. Flu and/or RSV swab sent to lab. Inserted dh3 saline lock: 20 gauge in right antecubital area, using aseptic technique. Blood collected. 10:10 Chest Pa And Lat (2 Views) XRAY In Process Unspecified. EDMS 10:12 Urine collected: clean catch specimen, clear. dh3 10:16 Second set of blood cultures drawn by co. 3 10:28 EKG done, by corrosion technician. reviewed by Philippe Dixon MD. [facility] 11:44 Daryn Red MD is Referral Physician. [facility] 12:47 No provider procedures requiring assistance completed. IV discontinued, intact, jl7 bleeding controlled, No redness/swelling at site. Pressure dressing applied. Administered Medications: 10:31 Drug: NS 0.9% 1000 ml Route: IV; Rate: 125 ml/hr; Site: right antecubital; 7 12:45 Follow up: IV Status: Completed infusion 7 12:13 Drug: Magnesium Sulfate 1 grams Route: IVPB; Infused Over: 30 mins; Site: right jl7 antecubital; 12:45 Follow up: Response: No adverse reaction; IV Status: Completed infusion [facility] 12:13 Drug: Insulin Regular Human 10 units {Co-Signature: la1 (Lukas Porter RN).} Route: Sub-Q; 7 Site: abdomen; 12:45 Follow up: Response: No adverse reaction [facility] Outcome: 11:45 Discharge ordered by . [facility] 12:47 Discharged to home ambulatory. 7 12:47 Condition: stable 12:47 Discharge instructions given to patient, family, Instructed on discharge instructions, follow up and referral plans. medication usage, Demonstrated understanding of instructions, follow-up care, medications, Prescriptions given X 2. 12:47 Patient left the ED. [facility] Signatures: Dispatcher [employer] EDMS Philippe Dixon MD MD cha Garcia, Rubi 4 Layton Red RN RN [facility] Berna Trejo formerly [facility] Vania Avila [facility] Lukas Porter RN la1 Corrections: (The following items were deleted from the chart) 09:53 09:39 BP 139 / 74; Pulse 80bpm; Resp 17bpm; Pulse Ox 100%; Temp 99.3F; Pain 0/10; 7 3
--- NOTE | 2018-12-27 11:47 | EDPHYS ---
Physician Documentation [facility] Name: Donovan Ruiz Age: 43 yrs Sex: Male : 1975 Arrival Date: 12/27/2018 Time: 09:28 Bed 18 Private MD: Daryn Red ED Physician Philippe Dixon HPI: 12/27 11:34 This 43 yrs old Black Male presents to ER via Ambulatory with complaints of Congestion, pritesh Breathing Difficulty. 11:34 The patient has shortness of breath at rest, with light activity. pritesh Historical: - Allergies: 09:39 Iodine; jl7 - Home Meds: 10:16 lisinopril 10 mg Oral tab once daily [Active]; pravastatin 20 mg oral tab 1 tab once jl7 daily [Active]; metformin 1,000 mg Oral tab 1 tab 2 times per day [Active]; amiodarone 200 mg Oral tab 1 tab once daily [Active]; carvedilol 25 mg oral tab 1 tab 2 times per day [Active]; glimepiride 4 mg Oral tab 1 tab [Active]; Xarelto 20 mg oral tab 1 tab once daily [Active]; ProAir HFA inhalation [Active]; Levemir 60 units BID subcutaneous [Active]; - PMHx: 09:39 Diabetes - IDDM; Hypertension; Sleep Apnea; jl7 10:16 Atrial Fib; Hyperlipidemia; jl7 - PSHx: 09:39 None; jl7 - Immunization history:: Adult Immunizations not up to date. - Social history:: Smoking status: Patient/guardian denies using tobacco. - Ebola Screening: : No symptoms or risks identified at this time. ROS: 11:41 Constitutional: Negative for fever, chills, and weight loss, Eyes: Negative for injury, pritesh pain, redness, and discharge, ENT: Negative for injury, pain, and discharge, Neck: Negative for injury, pain, and swelling, Cardiovascular: Negative for chest pain, palpitations, and edema, Abdomen/GI: Negative for abdominal pain, nausea, vomiting, diarrhea, and constipation, Back: Negative for injury and pain, : Negative for injury, bleeding, discharge, and swelling, MS/Extremity: Negative for injury and deformity, Skin: Negative for injury, rash, and discoloration, Neuro: Negative for headache, weakness, numbness, tingling, and seizure, Psych: Negative for depression, anxiety, suicide ideation, homicidal ideation, and hallucinations, Allergy/Immunology: Negative for hives, rash, and allergies, Endocrine: Negative for neck swelling, polydipsia, polyuria, polyphagia, and marked weight changes, Hematologic/Lymphatic: Negative for swollen nodes, abnormal bleeding, and unusual bruising. 11:41 Respiratory: Positive for cough, with clear sputum. Exam: 11:41 Constitutional: This is a well developed, well nourished patient who is awake, alert, pritesh and in no acute distress. Head/Face: Normocephalic, atraumatic. Eyes: Pupils equal round and reactive to light, extra-ocular motions intact. Lids and lashes normal. Conjunctiva and sclera are non-icteric and not injected. Cornea within normal limits. Periorbital areas with no swelling, redness, or edema. ENT: Nares patent. No nasal discharge, no septal abnormalities noted. Tympanic membranes are normal and external auditory canals are clear. Oropharynx with no redness, swelling, or masses, exudates, or evidence of obstruction, uvula midline. Mucous membranes moist. Neck: Trachea midline, no thyromegaly or masses palpated, and no cervical lymphadenopathy. Supple, full range of motion without nuchal rigidity, or vertebral point tenderness. No Meningismus. Chest/axilla: Normal chest wall appearance and motion. Nontender with no deformity. No lesions are appreciated. Cardiovascular: Regular rate and rhythm with a normal S1 and S2. No gallops, murmurs, or rubs. Normal PMI, no JVD. No pulse deficits. Respiratory: Lungs have equal breath sounds bilaterally, clear to auscultation and percussion. No rales, rhonchi or wheezes noted. No increased work of breathing, no retractions or nasal flaring. Abdomen/GI: Soft, non-tender, with normal bowel sounds. No distension or tympany. No guarding or rebound. No evidence of tenderness throughout. Back: No spinal tenderness. No costovertebral tenderness. Full range of motion. Male : Normal genitalia with no discharge or lesions. Skin: Warm, dry with normal turgor. Normal color with no rashes, no lesions, and no evidence of cellulitis. MS/ Extremity: Pulses equal, no cyanosis. Neurovascular intact. Full, normal range of motion. Neuro: Awake and alert, GCS 15, oriented to person, place, time, and situation. Cranial nerves II-XII grossly intact. Motor strength 5/5 in all extremities. Sensory grossly intact. Cerebellar exam normal. Normal gait. Psych: Awake, alert, with orientation to person, place and time. Behavior, mood, and affect are within normal limits. 11:41 Musculoskeletal/extremity: ROM: no acute changes, intact in all extremities, Circulation is intact in all extremities. Pulses: Sensation intact. Compartment Syndrome exam of affected extremity: is normal. DVT Exam: No signs of deep vein thrombosis. no pain, no swelling, no tenderness, negative Homans' sign noted on exam, no appreciated bluish discoloration, no erythema, no increased warmth. Vital Signs: 09:39 BP 139 / 74; Pulse 80; Resp 17; Temp 99.3; Pulse Ox 100% ; Weight 133.36 kg; Pain 0/10; dh3 11:00 BP 141 / 84; Pulse 67; Resp 16 S; Pulse Ox 100% on R/A; jl7 12:45 BP 123 / 67; Pulse 58; Resp 16 S; Pulse Ox 99% on R/A; jl7 MDM: 09:46 Patient medically screened. [facility] 11:42 Data reviewed: vital signs, nurses notes, lab test result(s), EKG, radiologic studies, pritesh plain films. 12/27 09:49 Order name: Basic Metabolic Panel; Complete Time: 11:32 [facility] 12/27 09:49 Order name: CBC with Diff; Complete Time: 11:32 [facility] 12/27 09:49 Order name: LFT's; Complete Time: 11:32 [facility] 12/27 09:49 Order name: Magnesium; Complete Time: 11:32 [facility] 12/27 09:49 Order name: NT PRO-BNP; Complete Time: 11:32 [facility] 12/27 09:49 Order name: PT-INR; Complete Time: 11:32 [facility] 12/27 09:49 Order name: Troponin (emerg Dept Use Only); Complete Time: 11:32 [facility] 12/27 09:49 Order name: Chest Pa And Lat (2 Views) XRAY; Complete Time: 11:32 [facility] 12/27 09:49 Order name: Blood Culture Adult (2) [facility] 12/27 09:52 Order name: Flu; Complete Time: 11:32 [facility] 12/27 10:14 Order name: Urine Dipstick--Ancillary (enter results); Complete Time: 11:32 12/27 09:49 Order name: EKG; Complete Time: 09:50 [facility] 12/27 09:49 Order name: Cardiac monitoring; Complete Time: 10:35 [facility] 12/27 09:49 Order name: EKG - Nurse/Tech; Complete Time: 10:35 [facility] 12/27 09:49 Order name: IV Saline Lock; Complete Time: 10:12 [facility] 12/27 09:49 Order name: Labs collected and sent; Complete Time: 10:12 [facility] 12/27 09:49 Order name: O2 Per Protocol; Complete Time: 10:12 [facility] 12/27 09:49 Order name: O2 Sat Monitoring; Complete Time: 10:12 [facility] 12/27 09:49 Order name: Urine Dipstick-Ancillary (obtain specimen); Complete Time: 10:12 [facility] Administered Medications: 10:31 Drug: NS 0.9% 1000 ml Route: IV; Rate: 125 ml/hr; Site: right antecubital; [facility] 12:45 Follow up: IV Status: Completed infusion [facility] 12:13 Drug: Magnesium Sulfate 1 grams Route: IVPB; Infused Over: 30 mins; Site: right jl7 antecubital; 12:45 Follow up: Response: No adverse reaction; IV Status: Completed infusion [facility] 12:13 Drug: Insulin Regular Human 10 units {Co-Signature: la1 (Lukas Porter RN).} Route: Sub-Q; jl7 Site: abdomen; 12:45 Follow up: Response: No adverse reaction [facility] Disposition: 12/27/18 11:45 Discharged to Home. Impression: Cough, Acute upper respiratory infection, unspecified, Type 1 diabetes mellitus, Hypomagnesemia. - Condition is Stable. - Discharge Instructions: Type 1 Diabetes Mellitus, Diagnosis, Adult, Hypomagnesemia, Upper Respiratory Infection, Adult, Upper Respiratory Infection, Adult, [id number], Cough, Adult, Cici-oz-Hqfj, Cough, Adult, Type 1 Diabetes Mellitus, Self Care, Adult, Type 1 Diabetes Mellitus, Diagnosis, Adult, Hcti-gy-Zgye, Type 1 Diabetes Mellitus, Self Care, Adult, Hrxx-[id number]. - Prescriptions for Cheratussin AC 10- 100 mg/5 mL Oral liquid - take 10 milliliter by ORAL route every 4 hours; 120 milliliter. Claritin 10 mg Oral Tablet - take 1 tablet by ORAL route once daily As needed; 20 tablet. - Medication Reconciliation Form, Thank You Letter, Antibiotic Education, Prescription Opioid Use form. - Follow up: Daryn Red MD; When: 2 - 3 days; Reason: Recheck today's complaints, Continuance of care, Re-evaluation by your physician. - Problem is new. - Symptoms have improved. Signatures: Dispatcher [employer] [facility] Philippe Dixon MD MD cha Leal, Jahala RN RN jl7 Lukas Porter RN la1 Corrections: (The following items were deleted from the chart) 11:47 11:45 12/27/2018 11:45 Discharged to Home. Impression: Cough; Acute upper respiratory pritesh infection, unspecified. Condition is Stable. Forms are Medication Reconciliation Form, Thank You Letter, Antibiotic Education, Prescription Opioid Use. Follow up: Daryn Red; When: 2 - 3 days; Reason: Recheck today's complaints, Continuance of care, Re-evaluation by your physician. Problem is new. Symptoms have improved. [facility] 12:47 11:47 12/27/2018 11:45 Discharged to Home. Impression: Cough; Acute upper respiratory jl7 infection, unspecified; Type 1 diabetes mellitus; Hypomagnesemia. Condition is Stable. Discharge Instructions: Upper Respiratory Infection, Adult, Upper Respiratory Infection, Adult, Blbq-[id number], Cough, Adult, Fcfb-gl-Bigm, Cough, Adult. Prescriptions for Cheratussin AC 10-100 mg/5 mL Oral liquid - take 10 milliliter by ORAL route every 4 hours; 120 milliliter, Claritin 10 mg Oral Tablet - take 1 tablet by ORAL route once daily As needed; 20 tablet. and Forms are Medication Reconciliation Form, Thank You Letter, Antibiotic Education, Prescription Opioid Use. Follow up: Daryn Red; When: 2 - 3 days; Reason: Recheck today's complaints, Continuance of care, Re-evaluation by your physician. Problem is new. Symptoms have improved. pritesh
[2018-12-27] MEDS ORDERED: MAGNESIUM SULFATE 1 gm IVPB 1 GM/100 ML BAG IV ONE (12:02)
[2018-12-27] MEDS ORDERED: INSULIN -REGULAR HUMAN 50 UNIT/0.5 ML ML ONE (12:02)
--- NOTE | 2018-12-27 12:35 | EKG ---
Test Date: 2018-12-27 Test Time: 10:16:27 Bulk Cooler Installer: JEAN MARIE MEASUREMENT RESULTS: Intervals: Rate: 69 VA: 144 QRSD: 90 QT: 376 QTc: 402 [place]: P: 49 VA: 144 QRS: 157 T: -51 INTERPRETIVE STATEMENTS: Normal sinus rhythm Right axis deviation Low voltage QRS ST & T wave abnormality, consider inferolateral ischemia Ab no significant change from previous ECGormal ECG Compared to ECG 07/18/2018 07:02:41 Electronically Signed On 12-27-18 12:34:24 CDT by Cooper Olivera
[2018-12-27 12:54] VITALS: TEMP 99.3
[2018-12-27 12:57] VITALS: BP 123/67; O2SAT 99
== END 2018-12-27 12:47 | disposition home or self-care (01) ==
LOC: ER 09:26
DX: J06.9 Acute upper respiratory infection, unspecified (principal); E83.42 Hypomagnesemia; E10.9 Type 1 diabetes mellitus without complications; I10 Essential (primary) hypertension; I48.91 Unspecified atrial fibrillation; Z79.01 Long term (current) use of anticoagulants; Z91.048 Other nonmedicinal substance allergy status
CPT/HCPCS: 96365; 96361; 93005; 87040 ×2; 85025; 80048; 36415; 83735; 85610; 80076; 81003; 84484; 83880; 87804 ×2; 71046; 96372; 99284; J3475; J7030

== ENCOUNTER 2020-10-12 15:36 | Inpatient (IN) | payer OTHER ==
--- OUTSIDE RECORDS SUMMARY | 2020-10-12 15:40 | XMS REPORT | Continuity of Care Document ---
:1975 Author Organization [facility] t Address [address] [place] [address] Care Team Providers Name Role Phone Sara Werner Attending Clinician [phone] Problems This patient has no known problems. Allergies, Adverse Reactions, Alerts This patient has no known allergies or adverse reactions. Medications This patient has no known medications. Procedures This patient has no known procedures. Encounters Start End Encounter Admission Attending Care Care Encounter Source Date/Time Date/Time Type Type Clinicians Facility Department ID 2020-06-18 2020-06-18 Outpatient ANGELA Werner [facility] [id number] 00:00:00 00:00:00 Charly [id number] Sara [id number] Results This patient has no known results.
[2020-10-12] MEDS ORDERED: METHYLPREDNISOLONE 125 MG INJ ONE (20:30)
[2020-10-12] MEDS ORDERED: NA CHLORIDE 0.9% 1,000 ML ONE (20:30)
[2020-10-12] MEDS ORDERED: DIPHENHYDRAMINE 50 MG/ML VIAL ONE (20:30)
[2020-10-12] MEDS ORDERED: FAMOTIDINE 20 MG/2 ML VIAL IV ONE (20:31)
--- NOTE | 2020-10-12 20:47 | RAD REPORT ---
EXAM DESCRIPTION: RAD - Chest Single View - 10/12/2020 8:32 pm CLINICAL HISTORY: CHEST PAIN Chest pain. COMPARISON: Chest Pa And Lat (2 Views) dated 12/27/2018; Chest Pa And Lat (2 Views) dated 07/18/2018 FINDINGS: Portable technique limits examination quality. The lungs are grossly clear. The heart is normal in size. No displaced fractures. IMPRESSION: No acute intrathoracic process suspected.
[2020-10-12 20:56] LABS: Absolute Lymphocytes (CBC) 1.6 K/uL (0.7-4.9); Basophils % 1.1 % (0-1.3); Hematocrit 38.5 % (39.6-49.0); Lymphocytes % 30.6 % (15.3-44.8); MPV 7.6 fL (7.6-11.3); RBC Red Blood Cell Count 5.06 M/uL (4.33-5.43)
[2020-10-12 20:57] LABS: Protime INR 1.87
--- NOTE | 2020-10-12 20:58 | RAD REPORT ---
EXAM DESCRIPTION: CT - Angio Aorta For Dissection - 10/12/2020 8:44 pm CLINICAL HISTORY: Chest pain radiating to the back. Abdominal distention;Chest pain;Dissection;PE COMPARISON: No comparisons TECHNIQUE: CT angiography of the aorta was performed with MIPs. All CT scans are performed using dose optimization technique as appropriate and may include automated exposure control or mA/KV adjustment according to patient size. FINDINGS: A left aortic arch is present with normal branching pattern of the great vessels.No acute aortic finding is seen such as aneurysm, penetrating ulcer or dissection. The celiac axis, SMA, FILIPE and renal arteries are patent. No evidence of pulmonary embolism. The lungs are clear. The liver demonstrates no focal mass or biliary dilatation. Fatty liver is noted. The spleen, pancrea s, adrenal glands and kidneys are within normal limits for arterial phase imaging. No bowel obstruction or free fluid.Inflammatory changes involving the skin is noted in the right lowe r quadrant/superior right groin anterior abdominal wall. A subcutaneous abscess is present as well me asuring 42 x 30 mm region. No fracture or worrisome bone lesion seen. IMPRESSION: No acute aortic finding is demonstrated. Suspected cellulitis with subcutaneous 42 mm abscess right superior groin region anterior abdominal w all. Suggest direct visualization in the region.
--- NOTE | 2020-10-12 21:16 | RAD REPORT ---
EXAM DESCRIPTION: US - Abdomen Exam Limited - 10/12/2020 9:10 pm CLINICAL HISTORY: ABD PAIN COMPARISON: No comparisons FINDINGS: The gallbladder demonstrates no gallstones. No pericholecystic fluid or gallbladder wall t hickening. The common bile duct is normal measuring 3 mm.. The liver demonstrates fatty liver. IMPRESSION: Negative gallbladder/ biliary tree. Fatty liver.
[2020-10-12 21:18] LABS: ALT/SGPT 36 U/L (12-78); AST/SGOT 21 U/L (15-37); Albumin 3.3 g/dL (3.4-5.0); Alkaline Phosphatase 139 U/L (45-117); BUN Blood Urea Nitrogen 19 mg/dL (7-18); Bicarbonate 25 mmol/L (21-32); Bilirubin Direct 0.1 mg/dL (0-0.2); Bilirubin Total 0.4 mg/dL (0.2-1.0); Glucose Level 379 mg/dL (74-106); Lipase 180 U/L (73-393); Magnesium 2.1 mg/dL (1.8-2.4); NT PRO-BNP 165 pg/mL (<125); Potassium 4.1 mmol/L (3.5-5.1); Protein, Total 7.7 g/dL (6.4-8.2); Sodium Level 133 mmol/L (136-145); Troponin (Emerg Dept Use Only) < 0.02 ng/mL (0.0-0.045)
--- NOTE | 2020-10-12 21:43 | EDPHYS ---
Physician Documentation [facility] – [place], [place] Name: Donovan Ruiz Age: 44 yrs Sex: Male : 1975 Arrival Date: 10/12/2020 Time: 15:50 Bed 28 Private MD: Daryn Red ED Physician Philippe Dixon HPI: 10/12 20:00 This 44 yrs old Black Male presents to ER via Ambulatory with complaints of Flank Pain pritesh - when swallowing/chewing. 20:00 The patient complains of pain in the right scapular area, right subscapular area, low pritesh back area and mid back area. The pain does not radiate. Onset: The symptoms/episode began/occurred at an unknown time. Modifying factors: The symptoms are alleviated by nothing. the symptoms are aggravated by food/fluids. Associated signs and symptoms: The patient has no apparent associated signs or symptoms. Severity of pain: At its worst the pain was mild in the emergency department the pain is unchanged. The patient has experienced similar episodes in the past, a few times. Historical: - Allergies: 16:23 Iodine; ca1 - Home Meds: 23:06 amiodarone 200 mg Oral tab 1 tab once daily [Active]; carvedilol 25 mg Oral tab 1 tab 2 ca1 times per day [Active]; glimepiride 4 mg Oral tab 1 tab [Active]; Levemir 60 units BID subcutaneous [Active]; lisinopril 10 mg Oral tab once daily [Active]; metformin 1,000 mg Oral tab 1 tab 2 times per day [Active]; pravastatin 20 mg Oral tab 1 tab once daily [Active]; ProAir HFA inhalation [Active]; Xarelto 20 mg Oral tab 1 tab once daily [Active]; - PMHx: 16:23 Atrial Fib; Diabetes - IDDM; Hyperlipidemia; Hypertension; Sleep Apnea; ca1 - Immunization history:: Client reports receiving the 1st dose of the Covid vaccine, Flu vaccine is not up to date. - Social history:: Smoking status: Patient denies any tobacco usage or history of. - Family history:: not pertinent. ROS: 20:00 Constitutional: Negative for fever, chills, and weight loss, Eyes: Negative for injury, pritesh pain, redness, and discharge, ENT: Negative for injury, pain, and discharge, Neck: Negative for injury, pain, and swelling, Respiratory: Negative for shortness of breath, cough, wheezing, and pleuritic chest pain, Back: Negative for injury and pain, : Negative for injury, bleeding, discharge, and swelling, MS/Extremity: Negative for injury and deformity, Skin: Negative for injury, rash, and discoloration, Neuro: Negative for headache, weakness, numbness, tingling, and seizure, Psych: Negative for depression, anxiety, suicide ideation, homicidal ideation, and hallucinations, Allergy/Immunology: Negative for hives, rash, and allergies, Endocrine: Negative for neck swelling, polydipsia, polyuria, polyphagia, and marked weight changes, Hematologic/Lymphatic: Negative for swollen nodes, abnormal bleeding, and unusual bruising. 20:00 Cardiovascular: Positive for chest pain, of the anterior aspect of right upper chest and right breast. 20:00 Abdomen/GI: Positive for abdominal pain, abdominal cramps, abdominal distension, of the right upper quadrant and right lower quadrant. Exam: 20:03 Constitutional: This is a well developed, well nourished patient who is awake, alert, pritesh and in no acute distress. Head/Face: Normocephalic, atraumatic. Eyes: Pupils equal round and reactive to light, extra-ocular motions intact. Lids and lashes normal. Conjunctiva and sclera are non-icteric and not injected. Cornea within normal limits. Periorbital areas with no swelling, redness, or edema. ENT: Nares patent. No nasal discharge, no septal abnormalities noted. Tympanic membranes are normal and external auditory canals are clear. Oropharynx with no redness, swelling, or masses, exudates, or evidence of obstruction, uvula midline. Mucous membranes moist. Neck: Trachea midline, no thyromegaly or masses palpated, and no cervical lymphadenopathy. Supple, full range of motion without nuchal rigidity, or vertebral point tenderness. No Meningismus. Chest/axilla: Normal chest wall appearance and motion. Nontender with no deformity. No lesions are appreciated. Cardiovascular: Regular rate and rhythm with a normal S1 and S2. No gallops, murmurs, or rubs. Normal PMI, no JVD. No pulse deficits. Respiratory: Lungs have equal breath sounds bilaterally, clear to auscultation and percussion. No rales, rhonchi or wheezes noted. No increased work of breathing, no retractions or nasal flaring. Back: No spinal tenderness. No costovertebral tenderness. Full range of motion. Male : Normal genitalia with no discharge or lesions. Skin: Warm, dry with normal turgor. Normal color with no rashes, no lesions, and no evidence of cellulitis. MS/ Extremity: Pulses equal, no cyanosis. Neurovascular intact. Full, normal range of motion. Neuro: Awake and alert, GCS 15, oriented to person, place, time, and situation. Cranial nerves II-XII grossly intact. Motor strength 5/5 in all extremities. Sensory grossly intact. Cerebellar exam normal. Normal gait. Psych: Awake, alert, with orientation to person, place and time. Behavior, mood, and affect are within normal limits. 20:03 Abdomen/GI: Inspection: distension, Bowel sounds: normal, Palpation: mild abdominal tenderness, in the right upper quadrant and right lower quadrant, Liver: no appreciated palpable abnormalities, Hernia: not appreciated. 20:48 ECG was reviewed by the Attending Physician. [facility] Vital Signs: 16:21 BP 135 / 83; Pulse 74; Resp 18 S; Temp 98.9(TE); Pulse Ox 100% on R/A; Weight 140.61 kg ca1 (R); Height 5 ft. 9 in. (175.26 cm) (R); Pain 0/10; 16:21 Body Mass Index 45.78 (140.61 kg, 175.26 cm) ca1 MDM: 19:32 Patient medically screened. [facility] 20:02 Differential diagnosis: diverticulitis, pancreatitis. Data reviewed: vital signs, [facility] nurses notes, lab test result(s), EKG, radiologic studies, CT scan, plain films. Data interpreted: terrazzo mechanic: rate is 74 beats/min, rhythm is regular, Pulse oximetry: on room air is 100 %. Test interpretation: by ED physician or midlevel provider: ECG, plain radiologic studies. Counseling: I had a detailed discussion with the patient and/or guardian regarding: the historical points, exam findings, and any diagnostic results supporting the discharge/admit diagnosis, lab results, radiology results. 10/12 19:59 Order name: Basic Metabolic Panel; Complete Time: 21:26 [facility] 10/12 19:59 Order name: CBC with Diff; Complete Time: 21:26 [facility] 10/12 19:59 Order name: LFT's; Complete Time: 21:26 [facility] 10/12 19:59 Order name: Magnesium; Complete Time: 21:26 [facility] 10/12 19:59 Order name: NT PRO-BNP; Complete Time: 21:26 [facility] 10/12 19:59 Order name: PT-INR; Complete Time: 21:26 [facility] 10/12 19:59 Order name: Troponin (emerg Dept Use Only); Complete Time: 21:26 [facility] 10/12 19:59 Order name: Lipase; Complete Time: 21:26 [facility] 10/12 21:35 Order name: Wound Culture [facility] 10/12 21:35 Order name: Wound Culture [facility] 10/13 00:39 Order name: COVID-19 : Document "Date of Symptom Onset" if Symptomatic. tt3 10/13 01:11 Order name: CORONAVIRUS [facility] 10/13 02:14 Order name: Troponin I [facility] 10/13 03:03 Order name: CREATININE WHOLE BLOOD [facility] 10/12 19:59 Order name: XRAY Chest (1 view); Complete Time: 21:26 [facility] 10/13 03:03 Order name: CREATININE WHOLE BLOOD [facility] 10/13 07:02 Order name: CBC with Automated Diff [facility] 10/13 07:25 Order name: Comprehensive Metabolic Panel [facility] 10/13 07:25 Order name: Lipid Profile [facility] 10/13 07:25 Order name: T4 Free [facility] 10/13 07:25 Order name: Magnesium [facility] 10/13 07:25 Order name: Thyroid Stimulating Hormone [facility] 10/13 08:27 Order name: CBC Smear Scan [facility] 10/13 08:59 Order name: Hemoglobin A1c [facility] 10/13 09:21 Order name: Troponin I [facility] 10/13 10:46 Order name: Urinalysis W/Microscopic [facility] 10/13 11:17 Order name: Glucose, Ancillary Testing [facility] 10/13 11:54 Order name: CORONAVIRUS [facility] 10/13 12:47 Order name: SARS-COV-2 RT PCR [facility] 10/13 15:55 Order name: Glucose, Ancillary Testing [facility] 10/12 19:59 Order name: EKG; Complete Time: 20:00 [facility] 10/12 19:59 Order name: Cardiac monitoring [facility] 10/12 19:59 Order name: EKG - Nurse/Tech [facility] 10/12 19:59 Order name: IV Saline Lock [facility] 10/12 19:59 Order name: Labs collected and sent [facility] 10/12 19:59 Order name: O2 Per Protocol [facility] 10/12 19:59 Order name: O2 Sat Monitoring [facility] 10/12 19:59 Order name: CT Aorta for Dissection; Complete Time: 21:26 [facility] 10/12 19:59 Order name: US Abdomen Limited; Complete Time: 21:26 [facility] 10/12 19:59 Order name: Urine Dipstick-Ancillary (obtain specimen) [facility] 10/12 21:43 Order name: NPO pritesh EC:48 Rate is 72 beats/min. Rhythm is regular. QRS [place] is Normal. IA interval is normal. QRS pritesh interval is normal. QT interval is normal. No Q waves. T waves are Normal. ST Segment is depressed in leads II, III, aVF, V3, V4, V5, V6. Interpreted by me. Reviewed by me. Administered Medications: 20:36 Drug: NS 0.9% 1000 ml Route: IV; Rate: 125 ml/hr; Site: right antecubital; ca1 20:36 Drug: Pepcid (famotidine) 40 mg Route: IVP; Site: right antecubital; ca1 20:36 Drug: SOLU-Medrol (methylPrednisoLONE) 125 mg Route: IVP; Site: right antecubital; ca1 20:36 Drug: Benadryl (diphenhydrAMINE) 50 mg Route: IVP; Site: right antecubital; ca1 22:12 Drug: LanTUS (insulin glargine) 35 units Route: Sub-Q; Site: left lower abdomen; ca1 22:13 Drug: Clindamycin 900 mg Route: IVPB; Infused Over: 30 mins; Site: right antecubital; ca1 22:26 Drug: Insulin Regular Human 10 units {Co-Signature: ak2 (John Brenner).} Route: IVP; ld1 Site: right antecubital; Disposition Summary: 10/12/20 21:42 Hospitalization Ordered Hospitalization Status: Observation pritesh Condition: Stable pritesh Problem: new pritesh Symptoms: have improved pritesh Bed/Room Type: Standard pritesh Provider: Bam Alfred(10/12/20 21:45) pritesh Location: Telemetry/MedSurg (observation)(10/13/20 14:38) Room Assignment: [facility](10/13/20 14:38) Diagnosis - Cutaneous abscess of abdominal wall - 4 cm pritesh - Obesity, unspecified pritesh - Type 1 diabetes mellitus with hyperglycemia pritesh - Cellulitis of abdominal wall pritesh Forms: - Medication Reconciliation Form pritesh - SBAR form pritesh Signatures: Dispatcher [employer] EDCarmina Sampson RN RN Raisa Orta RN RN Philippe Shane MD MD cha Acob, Cheryl, RN RN ca1 Dibbern, Lauren, RN RN ld1 John [email or web address] Corrections: (The following items were deleted from the chart) 21:45 21:42 Hai Zabala [facility] 21:52 21:42 Telemetry/MedSurg (observation) [facility] 21:52 21:42 [facility] 10/13 14:38 07 21:52 [facility] ER HOLD [facility] 10/13 14:38 10/12 21:52 ERHOLD- [facility]
--- NOTE | 2020-10-12 21:43 | ER ---
Nurse's Notes [facility] Name: Donovan Ruiz Age: 44 yrs Sex: Male : 1975 Arrival Date: 10/12/2020 Time: 15:50 Bed 28 Private MD: Daryn Red Diagnosis: Cutaneous abscess of abdominal wall-4 cm;Obesity, unspecified;Type 1 diabetes mellitus with hyperglycemia;Cellulitis of abdominal wall Presentation: 10/12 16:21 Chief complaint: Patient states: RUQ and RLQ pain every after meal x 2 - 3 days. ca1 Reports N/V. I was diagnosed with a Colitis at [facility] a week ago, and still taking antibiotics. Coronavirus screen: Client denies travel out of the [place] in the last 14 days. nausea, vomiting. Client presents with at least one sign or symptom that may indicate coronavirus-19. Standard/surgical mask placed on the client. Provider contacted for isolation considerations. Ebola Screen: Patient negative for fever greater than or equal to 101.5 degrees Fahrenheit, and additional compatible Ebola Virus Disease symptoms Patient denies exposure to infectious person. Patient denies travel to an Ebola-affected area in the 21 days before illness onset. No symptoms or risks identified at this time. Initial Sepsis Screen: Does the patient meet any 2 criteria? No. Patient's initial sepsis screen is negative. Does the patient have a suspected source of infection? No. Patient's initial sepsis screen is negative. Risk Assessment: Do you want to hurt yourself or someone else? Patient reports no desire to harm self or others. Onset of symptoms was October 12, 2020. 16:21 Method Of Arrival: Ambulatory ca1 16:21 Acuity: DASH 3 ca1 Triage Assessment: 23:06 General: Appears in no apparent distress. Behavior is calm, cooperative. Pain: Denies ca1 pain. Historical: - Allergies: 16:23 Iodine; ca1 - Home Meds: 23:06 amiodarone 200 mg Oral tab 1 tab once daily [Active]; carvedilol 25 mg Oral tab 1 tab 2 ca1 times per day [Active]; glimepiride 4 mg Oral tab 1 tab [Active]; Levemir 60 units BID subcutaneous [Active]; lisinopril 10 mg Oral tab once daily [Active]; metformin 1,000 mg Oral tab 1 tab 2 times per day [Active]; pravastatin 20 mg Oral tab 1 tab once daily [Active]; ProAir HFA inhalation [Active]; Xarelto 20 mg Oral tab 1 tab once daily [Active]; - PMHx: 16:23 Atrial Fib; Diabetes - IDDM; Hyperlipidemia; Hypertension; Sleep Apnea; ca1 - Immunization history:: Client reports receiving the 1st dose of the Covid vaccine, Flu vaccine is not up to date. - Social history:: Smoking status: Patient denies any tobacco usage or history of. - Family history:: not pertinent. Screenin:05 Abuse screen: Denies threats or abuse. Denies injuries from another. Nutritional ca1 screening: No deficits noted. Tuberculosis screening: No symptoms or risk factors identified. Fall Risk None identified. Assessment: 23:07 Reassessment: Patient and/or family updated on plan of care and expected duration. Pain ca1 level reassessed. General: Appears. General: Appears in no apparent distress. Pain: Denies pain. Neuro: No deficits noted. Cardiovascular: No deficits noted. Respiratory: No deficits noted. Vital Signs: 16:21 BP 135 / 83; Pulse 74; Resp 18 S; Temp 98.9(TE); Pulse Ox 100% on R/A; Weight 140.61 kg ca1 (R); Height 5 ft. 9 in. (175.26 cm) (R); Pain 0/10; 16:21 Body Mass Index 45.78 (140.61 kg, 175.26 cm) ca1 ED Course: 15:50 Patient arrived in ED. am2 15:51 Daryn Red MD is Private Physician. am2 16:22 Triage completed. ca1 16:23 Arm band placed on right wrist. ca1 19:31 Philippe Dixon MD is Attending Physician. pritesh 20:32 XRAY Chest (1 view) In Process Unspecified. EDMS 20:44 CT Aorta for Dissection In Process Unspecified. EDMS 21:10 US Abdomen Limited In Process Unspecified. EDMS 21:40 Hai Zabala is Hospitalizing Provider. pritesh 21:45 Bam Alfred MD is Hospitalizing Provider. pritesh 23:05 Patient has correct armband on for positive identification. ca1 23:05 No provider procedures requiring assistance completed. Inserted saline lock: 20 gauge ca1 in right antecubital area, using aseptic technique. Administered Medications: 20:36 Drug: NS 0.9% 1000 ml Route: IV; Rate: 125 ml/hr; Site: right antecubital; ca1 20:36 Drug: Pepcid (famotidine) 40 mg Route: IVP; Site: right antecubital; ca1 20:36 Drug: SOLU-Medrol (methylPrednisoLONE) 125 mg Route: IVP; Site: right antecubital; ca1 20:36 Drug: Benadryl (diphenhydrAMINE) 50 mg Route: IVP; Site: right antecubital; ca1 22:12 Drug: LanTUS (insulin glargine) 35 units Route: Sub-Q; Site: left lower abdomen; ca1 22:13 Drug: Clindamycin 900 mg Route: IVPB; Infused Over: 30 mins; Site: right antecubital; ca1 22:26 Drug: Insulin Regular Human 10 units {Co-Signature: [email or web address] (John Brenner).} Route: IVP; ld1 Site: right antecubital; Outcome: 21:42 Decision to Hospitalize by Provider. pritesh 10/13 16:12 Patient left the ED. aa5 Signatures: Dispatcher [employer] EDMS Philippe Dixon MD MD cha Calderon, Audri, RN RN aa5 Rowan Garcia am2 Lucy Oseguera RN RN ca1 Lauryn Sullivan RN RN ld1 John [email or web address] Corrections: (The following items were deleted from the chart) 10/12 16:30 16:21 Chief complaint: Patient states: RUQ and RLQ pain every after meal x 2 - 3 days. ca1 Reports N/V. ca1
[2020-10-12] MEDS ORDERED: INSULIN -REGULAR HUMAN 50 UNIT/0.5 ML ML ONE (22:30)
[2020-10-12] MEDS ORDERED: INSULIN GLARGINE 100 UNITS/ML SQ ONE (22:32)
[2020-10-12] MEDS ORDERED: CLINDAMYCIN 900MG/D5W 900 MG/50 ML IVPB IV ONE (22:47)
--- NOTE | 2020-10-12 23:19 | P.HP ---
Certification for Inpatient Patient admitted to: Observation With expected LOS: <2 Midnights Patient will require the following post-hospital care: None Practitioner: I am a practitioner with admitting privileges, knowledge of patient current condition, hospital course, and medical plan of care. Services: Services provided to patient in accordance with Admission requirements found in Title 42 Section 412.3 of the Code of Federal Regulations Patient History Date of Service: 10/12/20 Primary Care Provider: none Reason for admission: Abdominal wall abscess History of Present Illness: 44-year-old Afro-[place] African male with history of atrial fibrillation not on chronic anticoagulation therapy, hypertension, hyperlipidemia, diabetes mellitus type 2 presents emergency department for lower abdominal pain. Patient reportedly with previously diagnosed abscess to the lower abdominal wall approximately 1 week prior. Patient evaluated in the emergency department, CT demonstrates cellulitis with subcutaneous 42 mm abscess in the right superior groin region anterior abdominal wall. Small opening in the skin noted to area with very small amount of purulent drainage noted. Patient has been on clindamycin at home, case was discussed with General Surgery by ED provider who recommends admit, NPO after midnight, continuation of antibiotics. I saw the patient in the ER he is awake, alert, oriented x3. Patient does not appear septic. Abdomen is soft/nontender. - Past Medical/Surgical History -: Atrial fibrillation not on anticoagulation therapy -: Diabetes mellitus type 2 -: Hypertension -: Hyperlipidemia -: none Psychosocial/ Personal History: Unemployed, lives alone - Family History Mother -: Diabetes - Social History Smoking Status: Never smoker Alcohol use: No CD- Drugs: No Caffeine use: Yes Place of Residence: Home Review of Systems 10-point ROS is otherwise unremarkable Gastrointestinal: Abdominal Pain Physical Examination - Physical Exam General: Alert, In no apparent distress, Oriented x3 HEENT: Atraumatic, PERRLA, Mucous membr. moist/pink Neck: Supple, 2+ carotid pulse no bruit, No LAD, Without JVD or thyroid abnormality Respiratory: Clear to auscultation bilaterally, Normal air movement Cardiovascular: Regular rate/rhythm, Normal S1 S2 Gastrointestinal: Normal bowel sounds, No tenderness, No masses, Other (Area of induration/cellulitis presents to the right suprapubic region) Musculoskeletal: No tenderness Integumentary: No rashes Neurological: Normal speech, Normal strength at 5/5 x4 extr, Normal tone, Normal affect Lymphatics: No axilla or inguinal lymphadenopathy - Studies Laboratory Data (last 24 hrs) 10/12/20 20:25: PT 21.6 H, INR 1.87 10/12/20 20:25: WBC 5.10, Hgb 12.6 L, Hct 38.5 L, Plt Count 241 10/12/20 20:25: Sodium 133 L, Potassium 4.1, BUN 19 H, Creatinine 1.40 H, Glucose 379 H, Magnesium 2.1, Total Bilirubin 0.4, AST 21, ALT 36, Alkaline Phosphatase 139 H, Lipase 180 Assessment and Plan - Plan Assessment Abdominal pain secondary to 4.2 cm abdominal wall abscess -failed outpatient therapy Atrial fibrillation on chronic anticoagulation therapy Diabetes mellitus type 2 Hypertension Hyperlipidemia Plan Abdominal pain secondary to 4.2 cm abdominal wall abscess -failed outpatient the rapy: Continue with IV antibiotics, NPO, general surgery consulted for additional assistance in management. Possible incision/drainage tomorrow morning. DVT prophylaxis with SCDs. Appreciate further input renal surgery. Atrial fibrillation on chronic anticoagulation therapy: Patient reports being prescribed Plavix but not any Eliquis/Xarelto/Coumadin. Will hold Plavix at this time. Continue other home medications as appropriate. Monitor on telemetry. Diabetes mellitus type 2 : A.c. HS Accu-Cheks and sliding scale insulin th erapy. NPO at this time, A1c with morning lab Hypertension: Continue home medication Hyperlipidemia: Continue home medication Discharge Plan: Home Plan to discharge in: 48 Hours - Advance Directives Does patient have a Living Will: No Does patient have a Durable POA for Healthcare: No - Code Status/Comfort Care Code Status Assessed: Yes (Full code) Critical Care: No Time Spent Managing Pts Care (In Minutes): 55
[2020-10-13] MEDS: CLINDAMYCIN 600MG/D5W 600 MG/50 ML BAG IV SCH ×2 (01:00→09:00)
[2020-10-13] MEDS ORDERED: ONDANSETRON 4 MG/2 ML VIAL IV PRN (01:10)
[2020-10-13] MEDS ORDERED: MORPHINE 2 MG/ML SYR IV PRN (01:10)
[2020-10-13] MEDS: NA CHLORIDE 0.9% 1,000 ML IV SCH ×2 (01:10→14:30)
[2020-10-13] MEDS ORDERED: ACETAMINOPHEN 500 MG TAB PO PRN (01:10)
[2020-10-13] MEDS ORDERED: CLINDAMYCIN INJ 600 MG in NA CHLORIDE 0.9% 50 ML IV SCH (01:10)
[2020-10-13 02:43] VITALS: BMI 32.5
--- NOTE | 2020-10-13 06:28 | P.PN ---
Subjective Date of Service: 10/13/20 Primary Care Provider: none Chief Complaint: Abdominal wall abscess Subjective: Improving (feeling ok, R groin pain, no drainage overnight. general surgery to see patient this morning.) Review of Systems 10-point ROS is otherwise unremarkable Physical Examination - Vital Signs Temperature: 98.7 F Blood Pressure: 141/73 Pulse: 77 Respirations: 20 Pulse Ox (%): 97 - Studies Laboratory Data (last 24 hrs) 10/12/20 20:25: PT 21.6 H, INR 1.87 10/12/20 20:25: WBC 5.10, Hgb 12.6 L, Hct 38.5 L, Plt Count 241 10/12/20 20:25: Sodium 133 L, Potassium 4.1, BUN 19 H, Creatinine 1.40 H, Glucose 379 H, Magnesium 2.1, Total Bilirubin 0.4, AST 21, ALT 36, Alkaline Phosphatase 139 H, Lipase 180 Assessment & Plan Physician Review Additional Text: Physical Exam General: Alert, In no apparent distress, Oriented x3 HEENT: Normal conjunctiva, sclera anicteric Respiratory: Clear to auscultation bilaterally, Normal air movement Cardiovascular: Regular rate/rhythm, Normal S1 S2 Gastrointestinal: Soft, nondistended. ~5cm x 4cm area of induration and erythema on the right suprapubic region Musculoskeletal: No joint tenderness Neurological: Normal speech, Normal strength at 5/5 x4 extr Problem list Lower abdominal pain secondary to 4.2 cm abdominal wall abscess -failed outpatient therapy CKD 2 Atrial fibrillation on chronic anticoagulation therapy Diabetes mellitus type 2, insulin dependent Hypertension Hyperlipidemia -Continue IV antibiotics, n.p.o., general surgery consulted for possible I&D -SCDs for DVT prophylaxis given possible surgery -Mild XIMENA on CKD 2, continue IV fluids -Atrial fibrillation on chronic anticoagulation (Plavix per patient) -hold for now. Reports was started by his nurse case manager -Patient is n.p.o., give partial dose of Levemir, sliding scale insulin, confirm home dose and restart when tolerating p.o. -needs better glc control Dispo: anticipate dc home in ~24-48hrs, pending surgical eval / I&D Time Spent Managing Pts Care (In Minutes): 40
[2020-10-13 06:54] LABS: Absolute Lymphocytes (CBC) 0.4 K/uL (0.7-4.9); Basophils % 0.1 % (0-1.3); Hematocrit 37.1 % (39.6-49.0); Lymphocytes % 7.8 % (15.3-44.8); MPV 7.1 fL (7.6-11.3); RBC Red Blood Cell Count 4.87 M/uL (4.33-5.43)
[2020-10-13 07:17] LABS: Bilirubin Total 0.4 mg/dL (0.2-1.0); Magnesium 2.1 mg/dL (1.8-2.4); Potassium 4.3 mmol/L (3.5-5.1); Protein, Total 7.3 g/dL (6.4-8.2); Thyroid Stimulating Hormone 0.388 uIU/mL (0.360-3.740)
[2020-10-13] MEDS ORDERED: GLUCAGON 1 MG/VIAL IM PRN (07:28)
[2020-10-13] MEDS ORDERED: D50W 25 GM/50 ML SYRINGE IV PRN (07:28)
--- NOTE | 2020-10-13 07:28 | EKG ---
Test Date: 2020-10-12 Test Time: 20:13:18 Adjunct Professor Of Voice: MEASUREMENT RESULTS: Intervals: Rate: 72 GA: 164 QRSD: 100 QT: 450 QTc: 492 [place]: P: 40 GA: 164 QRS: 155 T: -41 INTERPRETIVE STATEMENTS: Normal sinus rhythm Right axis deviation Nonspecific ST and T wave abnormality Prolonged QT Abnormal ECG Compared to ECG 12/27/2018 10:16:27 Prolonged QT interval now present Possible ischemia no longer present ST (T wave) deviation still present Electronically Signed On 10-13-20 07:27:46 CDT by Conner Palumbo
[2020-10-13] MEDS ORDERED: INSULIN GLARGINE 100 UNITS/ML SQ ONE ×2 (07:29→08:37)
[2020-10-13] MEDS: INSULIN -REGULAR HUMAN 50 UNIT/0.5 ML ML SQ SCH ×4 (08:16→20:29)
[2020-10-13 08:27] LABS: Blood Morphology Comment NOT SEEN (NOT SEEN); Platelet Estimate ADEQ; White Blood Cell Scan OK (OK)
[2020-10-13] MEDS ORDERED: INSULIN -REGULAR HUMAN 50 UNIT/0.5 ML ML ONE (08:37)
[2020-10-13] MEDS ORDERED: PNEUMOCOCCAL VACCINE 0.5 ML IMVAC ONE (09:00)
[2020-10-13] MEDS: CLINDAMYCIN PHOSPHATE 600 MG in NA CHLORIDE 0.9% 50 ML IV SCH ×3 (09:47→18:00)
[2020-10-13 10:44] LABS: Urine Appearance CLEAR (Clear); Urine Bilirubin NEGATIVE (Negative); Urine Blood NEGATIVE (Negative); Urine Color YELLOW (Yellow); Urine Glucose 3+ (Negative); Urine Protein NEGATIVE (Negative); Urine Specific Gravity >=1.030 (1.005-1.030); Urine Urobilinogen 0.2 mg/dL (0.2-1.0)
[2020-10-13 10:57] LABS: Urine Bacteria <20 /HPF (NONE SEEN); Urine RBC NONE SEEN /HPF (NONE SEEN)
[2020-10-13] MEDS ORDERED: NA CHLORIDE 0.9% 1,000 ML ONE (11:40)
--- NOTE | 2020-10-13 12:05 | CON ---
Date of Consultation: 10/13/2020 Reason For Service: Abdominal wall abscess. History Of Present Illness: This is the case of a 44-year-old patient with multiple medical problems including diabetes, atrial fibrillation and obesity, who comes to us with abdominal wall abscess. Antonietta morelos has been trying to do this on his own. He has been squeezing pus out of that area for the last few days, but he cannot keep up with that. He produced more pus than what he can remove. So, he came t o the hospital, admitted to the hospital, and a surgical consult was obtained for surgical incision a nd drainage and debridement. He denies any trauma to that region. Past Medical History: Atrial fibrillation, hypertension, hyperlipidemia. Family History: Includes diabetes. Social History: He does not smoke. He does not drink alcohol. Review of Systems: Ten points otherwise unremarkable. Physical Examination: General: The patient is awake, alert. HEENT: Pupils anicteric. Neck: Supple. Chest: Clear. Abdomen: Soft and depressible. There is an area of induration over the suprapubic region and has so me purulent discharge coming from it consistent with an abscess and cellulitis. Rectal: Deferred. Genitalia: Deferred. Extremities: Good capillary refill. Laboratory Data: Blood work shows WBC count of 4.8, hemoglobin of 12.2. INR of 1.87. Glucose 455. Creatinine is 1.40. CAT scan of the abdomen and pelvis shows abdominal wall abscess. Assessment: This is a 44-year-old patient with abdominal wall abscess. Incision and drainage under anesthesia fully explained to the patient, which include, but not limited to infection, bleeding, dam age to adjacent structures, anesthesia complication, recurrence, [place] and even . He also understa nds that he may require wound care. He may need more than one surgical intervention. He was advised the importance of losing weight and also diabetes control. HM/MODL Voice ID: [id number] Report ID: [id number]
[2020-10-13] MEDS ORDERED: propofoL 200 MG/20 ML VIAL IV ONE ×2 (12:19→12:45)
[2020-10-13] MEDS ORDERED: FENTANYL CITR 100 MCG/2 ML ONE (12:19)
[2020-10-13] MEDS ORDERED: MIDAZOLAM HCL 2 MG/2 ML INJ ONE (12:20)
[2020-10-13] MEDS ORDERED: LIDOCAINE 1% MPF 5 ML VIAL ONE (12:20)
--- NOTE | 2020-10-13 12:32 | P.BOP ---
Preoperative diagnosis: complex abdominal wall abscess, abd wall cellulitis, diabetes, morbid obesi Postoperative diagnosis: same Primary procedure: Incision and drainage of complex abdominal wall abscess Secondary procedure: 5x5cm Estimated blood loss: <10cc Specimen: pus Findings: large amt of pus Anesthesia: General Complications: None Drain(s): Other Transferred to: Recovery Room Condition: Good
[2020-10-13] MEDS ORDERED: HYDROCODONE/APAP 5/325 MG TAB PO PRN (12:36)
--- NOTE | 2020-10-13 13:08 | OP ---
Date of Procedure: 10/13/2020 Surgeon: Flaco Kwong MD Diagnoses: Complex abdominal wall abscess, abdominal wall cellulitis, diabetes, morbid obesity. Postoperative Diagnoses: Complex abdominal wall abscess, abdominal wall cellulitis, diabetes, morbid obesity. Procedures: Incision and drainage of complex abdominal wall abscess. Abscess is about 5 x 5 cm. Findings: Large amount of pus. Anesthesia: General plus local. Indications: This is the case of a 44-year-old patient comes to us with abdominal wall abscess. Sylvester efits, alternatives, and risks of incision and drainage and debridement were fully explained which in clude, but not limited to infection, bleeding, damage to adjacent structures, anesthesia complication , nonhealing wound, [place] and even . He also understands this may not relieve any symptoms. He mi ght need more than one surgical intervention. He should be trying to lose some weight, control diabe santi and also do packing every day. He understood, signed a consent. Procedure In Detail: The patient was emergently brought to the operating room, placed in supine posi tion. Anesthesia was done without complication. Abdominal wall was prepped and draped in a sterile fashion. The patient already had pus coming from the area, so when we made incision, we noticed ther e was a large amount of pus coming like a fountain. The incision was extended. After it was probed, we noticed this is a complex abscess with multiple loculations that were all explored and opened unt il all the pus was removed. The area was irrigated profusely. Hemostasis was obtained and the area was packed with an entire bottle of Nu Gauze. The patient tolerated the procedure well. Area was covered with sterile dressings. The patient was on his way to recovery in stable condition. HM/MODL Voice ID: [id number] Report ID: [id number]
[2020-10-13 13:12] VITALS: O2SAT 94
[2020-10-13] MEDS ORDERED: D50W 25 GM/50 ML VIAL IV PRN ×2 (14:00→16:04)
[2020-10-13] MEDS: INSULIN GLARGINE 100 UNITS/ML SQ SCH (20:28)
[2020-10-14] MEDS: CLINDAMYCIN PHOSPHATE 600 MG in NA CHLORIDE 0.9% 50 ML IV SCH ×2 (00:53→09:14)
[2020-10-14] MEDS: NA CHLORIDE 0.9% 1,000 ML IV SCH (03:50)
[2020-10-14 05:23] LABS: Absolute Lymphocytes (CBC) 1.6 K/uL (0.7-4.9); Albumin 2.9 g/dL (3.4-5.0); Basophils % 0.3 % (0-1.3); Bilirubin Total 0.4 mg/dL (0.2-1.0); Hematocrit 34.1 % (39.6-49.0); MPV 6.9 fL (7.6-11.3); Magnesium 2.2 mg/dL (1.8-2.4); Potassium 3.8 mmol/L (3.5-5.1); Protein, Total 6.7 g/dL (6.4-8.2); RBC Red Blood Cell Count 4.55 M/uL (4.33-5.43)
[2020-10-14] MEDS ORDERED: POTASSIUM CL SA 10 MEQ TAB PO ONE (09:00)
[2020-10-14] MEDS: INSULIN -REGULAR HUMAN 50 UNIT/0.5 ML ML SQ SCH ×2 (09:15→12:49)
[2020-10-14] MEDS: INSULIN GLARGINE 100 UNITS/ML SQ SCH (09:16)
[2020-10-14 13:12] VITALS: BP 136/76; TEMP 97.2
--- NOTE | 2020-10-14 14:23 | P.DS ---
Admission Date: 10/12/20 Discharge Date: 10/14/20 Primary Care Provider: none Disposition: ROUTINE DISCHARGE Discharge Condition: GOOD Reason for Admission: Abdominal wall abscess Consultations: General surgeryDr. Kwong Procedures: CXR (10/12): No acute intrathoracic process suspected. Abd U/S (10/12): Negative gallbladder/ biliary tree. Fatty liver. Ct Dissection (10/12): FINDINGS: A left aortic arch is present with normal branching pattern of the great vessels.No acute aortic finding is seen such as aneurysm, penetrating ulcer or dissection. The celiac axis, SMA, FILIPE and renal arteries are patent. No evidence of pulmonary embolism. The lungs are clear. The liver demonstrates no focal mass or biliary dilatation. Fatty liver is noted. The spleen, pancreas, adrenal glands and kidneys are within normal limits for arterial phase imaging. No bowel obstruction or free fluid.Inflammatory changes involving the skin is noted in the right lower quadrant/superior right groin anterior abdominal wall. A subcutaneous abscess is present as well measuring 42 x 30 mm region. No fracture or worrisome bone lesion seen. IMPRESSION: No acute aortic finding is demonstrated. Suspected cellulitis with subcutaneous 42 mm abscess right superior groin region anterior abdominal wall. Suggest direct visualization in the region. Incision and drainage of abdominal wall abscess (10/13) by Dr. Kwong. Abscess approximately 5 x 5 cm with large amount of pus Problem list abdominal wall abscess -failed outpatient therapy, s/p I&D (10/13) CKDII Atrial fibrillation on Plavix Diabetes mellitus type 2, insulin dependent Hypertension Hyperlipidemia Brief History of Present Illness: 44-year-old Afro-[place] male with history of atrial fibrillation not on chronic anticoagulation therapy, hypertension, hyperlipidemia, diabetes mellitus type 2 presents emergency department for lower abdominal pain. Patient reportedly with previously diagnosed abscess to the lower abdominal wall approximately 1 week prior. Patient evaluated in the emergency department, CT demonstrates cellulitis with subcutaneous 42 mm abscess in the right superior groin region anterior abdominal wall. Small opening in the skin noted to area with very small amount of purulent drainage noted. Patient has been on clindamycin at home, case was discussed with General Surgery by ED provider who recommends admit, NPO after midnight, continuation of antibiotics. Hospital Course: Patient was empirically treated with IV clindamycin. General surgery was consulted, patient taken for incision and drainage on 10/13. Patient had significant relief of his pain. He remained afebrile, was tolerating diet, and was deemed stable for discharge. He was discharged with p.o. clindamycin for 12 more days. He is to follow-up with Dr. Kwong in the wound healing clinic next week. He is to continue with wet-to-dry dressings daily. Vital Signs/Physical Exam: Temp Pulse Resp BP Pulse Ox 97.2 F 81 18 136/76 97 10/14/20 12:00 10/14/20 12:00 10/14/20 12:00 10/14/20 12:00 10/14/20 12:00 General: Alert, In no apparent distress, Oriented x3 HEENT: Sclerae nonicteric Respiratory: Clear to auscultation bilaterally, Normal air movement Cardiovascular: No edema, Regular rate/rhythm, Normal S1 S2 Gastrointestinal: Soft and benign, Non-distended Musculoskeletal: No swelling, No erythema Integumentary: Other (RLQ / abdominal wall fold: abscess cavity with packing in place, serosanguineous drainage noted) Laboratory Data at Discharge: WBC 6.20 K/uL (4.3-10.9) D 10/14/20 03:35 Hgb 11.4 g/dL (13.6-17.9) L 10/14/20 03:35 Hct 34.1 % (39.6-49.0) L 10/14/20 03:35 Plt Count 221 K/uL (152-406) 10/14/20 03:35 PT 21.6 SECONDS (9.5-12.5) H 10/12/20 20:25 INR 1.87 10/12/20 20:25 Sodium 141 mmol/L (136-145) 10/14/20 03:35 Potassium 3.8 mmol/L (3.5-5.1) 10/14/20 03:35 BUN 17 mg/dL (7-18) 10/14/20 03:35 Creatinine 1.26 mg/dL (0.55-1.3) 10/14/20 03:35 Glucose 172 mg/dL (74-106) H 10/14/20 03:35 Magnesium 2.2 mg/dL (1.8-2.4) 10/14/20 03:35 Total Bilirubin 0.4 mg/dL (0.2-1.0) 10/14/20 03:35 AST 18 U/L (15-37) 10/14/20 03:35 ALT 30 U/L (12-78) 10/14/20 03:35 Alkaline Phosphatase 91 U/L (45-117) 10/14/20 03:35 Troponin I < 0.02 ng/mL (0.0-0.045) 10/13/20 08:46 Triglycerides 65 mg/dL (<150) 10/13/20 06:38 Cholesterol 172 mg/dL (<200) 10/13/20 06:38 HDL Cholesterol 89 mg/dL (40-60) H 10/13/20 06:38 Cholesterol/HDL Ratio 1.93 10/13/20 06:38 Lipase 180 U/L (73-393) 10/12/20 20:25 Home Medications: Canagliflozin [Invokana] 1 tab PO DAILY 10/13/20 Carvedilol [Coreg] 1 tab PO BID 10/13/20 Clopidogrel Bisulfate [Plavix] 1 tab PO DAILY 10/13/20 Fluticasone Propionate [Flonase Allergy Relief] 1 spray IH DAILY 10/13/20 Furosemide 1 tab PO BID 10/13/20 Glimepiride 1 tab PO BID 10/13/20 Insulin Detemir [Levemir Flextouch] 60 unit SQ BID 10/13/20 Liraglutide [Victoza 2-Johnnie] 0.1 ml SQ DAILY 10/13/20 Lisinopril [Zestril] 1 tab PO DAILY 10/13/20 Tramadol HCl [Ultram] 50 mg PO Q12H PRN 5 Days #10 tablet 10/14/20 clindamycin HCL [Clindamycin HCl] 300 mg PO QID 48 Days #12 capsule 10/14/20 New Medications: clindamycin HCL [Clindamycin HCl] 300 mg PO QID 48 Days #12 capsule Tramadol HCl [Ultram] 50 mg PO Q12H PRN 5 Days #10 tablet PRN Reason: Pain Scale 8-10 (Severe) Physician Discharge Instructions: You are found to have a abscess. You underwent incision and drainage of this abscess by Dr. Kwong. Continue wound dressing changes as recommended by Dr. Flaco Kwong. Wet-to-dry dressings daily. You are discharged with 12 more days of antibiotics. Follow-up with Dr. Kwong in the wound healing center next week. Please call [phone] when you get home to schedule an appointment on Tuesdays or Monday - days Dr. Kwong is in the wound clinic. Diet: ADA Activity: Ad david Followup: Daryn Red MD [Primary Care Provider] - Time spent managing pt's care (in minutes): 40
== END 2020-10-14 16:10 | disposition home or self-care (01) | DRG 580 ==
LOC: ER 15:36 → ERHOLD 22:18 → 2ND 10-13 12:54
PROVIDERS: ADMIT Hospitalist; ATTEND Hospitalist
PROC: 0W9F0ZZ Drainage of Abdominal Wall, Open Approach (ICD-10-PCS; principal; 2020-10-13 11:30)
DX: L02.211 Cutaneous abscess of abdominal wall (principal); N17.9 Acute kidney failure, unspecified; I12.9 Hypertensive chronic kidney disease with stage 1 through stage 4 chronic kidney disease, or unspecified chronic kidney disease; E11.22 Type 2 diabetes mellitus with diabetic chronic kidney disease; N18.2 Chronic kidney disease, stage 2 (mild); I48.91 Unspecified atrial fibrillation; E78.5 Hyperlipidemia, unspecified; E66.01 Morbid (severe) obesity due to excess calories; Z68.32 Body mass index [BMI] 32.0-32.9, adult; Z20.822 Contact with and (suspected) exposure to COVID-19
CPT/HCPCS: 36415; 71045; 71275; 74175; 76705; 80048; 80053; 80061; 80076; 81001; 82565; 82947; 83036; 83690; 83735; 83880; 84439; 84443; 84484; 85025; 85610; 87070; 87075; 87077; 87186; 87205; 93005; 94010; 96372; 96374; 96375; 99283; J1200; J1815; J2250; J2704; J2930; J3010; J7030; Q9967; S0077; U0003